=== PATIENT | female | born 2000 | race Caucasian/White ===

== ENCOUNTER 2020-01-07 07:44 | Outpatient (CLI) | payer BC, SELFPAY ==
--- NOTE | 2020-01-07 07:54 | US_ITS ---
WS: [id number] ULTRASOUND BREAST LEFT TECHNIQUE: Ultrasound left breast focused area of concern. CLINICAL INFORMATION: LT BREAST LUMP COMPARISON: None. FINDINGS: Ultrasound left breast 900 oclock position. In the 9:00 position there is a band of echogenic dense p arenchymal breast tissue. No suspicious cystic or solid lesions. No lesions to target for biopsy. US/US breast LT limited* 72041 IMPRESSION: BI-RADS 2 benign Recommend annual screening mammography age 40 Additional management of the palpable abnormality should be based on clinical g rounds.
== END 2020-01-07 07:45 | disposition home or self-care (01) ==
LOC: RADSHAW 07:47
PROVIDERS: Family Provider Nurse Practitioner Family; PCP Nurse Practitioner Family; Visit Provider Nurse Practitioner Family
DX: N63.20 Unspecified lump in the left breast, unspecified quadrant (principal)
CPT/HCPCS: 76642

== ENCOUNTER → 2020-02-04 16:39 | Outpatient (BNVA) | payer BC, SELFPAY | PROVIDERS: Family Provider Nurse Practitioner Family; PCP Nurse Practitioner Family; Visit Provider Nurse Practitioner Family | DX: Z30.42 Encounter for surveillance of injectable contraceptive (principal); H66.92 Otitis media, unspecified, left ear | CPT/HCPCS: 81025 ==

== ENCOUNTER → 2020-03-11 13:07 | Outpatient (BNVA) | payer BC, SELFPAY | PROVIDERS: Family Provider Nurse Practitioner Family; PCP Nurse Practitioner Family; Visit Provider Nurse Practitioner Family | DX: M25.552 Pain in left hip (principal) | CPT/HCPCS: 73502 ==

== ENCOUNTER 2020-03-22 10:42 | Day surgery (SDC) | payer BC, SELFPAY ==
[2020-03-19 08:30] VITALS: BMI 40.4
[2020-03-22 11:04] VITALS: BP 159/120; PULSE 71; RESP 18; TEMP 36.3; O2SAT 96
[2020-03-22 11:13] LABS: OR HCG Qualitative Urine Negative (Negative)
[2020-03-22] MEDS: sodium chloride 0.9% 1,000 ML 30 ML IV (11:39)
--- NOTE | 2020-03-22 12:00 | ANES.PREANE2 ---
Pre-Anesthetic Assessment Pre-Anesthetic Assessment: Height/Weight: Height 1.8 m Weight 131.542 kg Temp Pulse Resp BP Pulse Ox 97.4 F L 71 18 159/120 96 03/22/20 11:04 03/22/20 11:04 03/22/20 11:04 03/22/20 11:04 03/22/20 11:04 Preop Diagnosis: GERD associated with obesity Proposed Procedure: Operation Date: 03/22/20 12:00 Proposed Procedures p EGD 18437 K21.9(Not Applicable) - Kobi Machado MD Was Beta Darline taken within 24 hours: N/A Last intake: Intake Last Liquid Date 03/21/20 Last Liquid Time 22:30 Last Solid Date 03/21/20 Last Solid Time : Social: Social History: No alcohol and No tobacco Exam: Pre-Anes Outpt Exam: alert, oriented x 3, clear to auscultation bilaterally and regular rate & rhythm Airway: Submandibular: WNL Cervical ROM: WNL MP: 2 History/ROS: No significant history except as noted Pulmonary: Pulmonary: None reported CV/HEM: CV/HEM: None reported : : None reported Hepatic: Hepatic: None reported GI: GI: GERD Metabolic: Metabolic: Morbid obesity Musc/skel: Musc/skel: None reported Neuropsych: Neuropsych: None reported Anesthetic Plan: ASA status: 2 Anesthesia: Anesthesia Evaluation and MAC Risk of > 500 ml blood loss (7ml/kg in children): No Meds/Allergies Current Medications: Current Medications Generic Name Dose Route Start Last Admin Trade Name Freq PRN Reason Stop Dose Admin Sodium Chloride 1,000 mls @ 30 ml s/hr 03/22/20 11:00 03/22/20 11:39 Sodium Chloride 0.9% IV 30 mls/hr .Q24H ALEKSEY Administration PFSH Anesthesia PFSH: Medical History Anxiety Chronic back pain Family planning, Depo-Provera contraception monitoring/administration Left hip pain Morbid obesity Surgical History GERD (gastroesophageal reflux disease) History of bone graft From Hip History of foot surgery Left History of hip surgery error Family History Other Diabetes Denies family history of Anesthesia complication Bleeding disorder Social History Smoking and tobacco status: never smoked Alcohol intake: never Lives independently: Yes Household members: family Marital status: Single Current occupational status: employed History of recent travel: No Data Anesthesia Other Labs: Laboratory Results - last 48 hr 03/22/20 11:07 Urine HCG, Qual Negative Cardiac Studies: No Data to Display
--- NOTE | 2020-03-22 12:03 | W.PM.OPSUD ---
Surgery/Procedure H&P Update DATE OF PROCEDURE: March 22, 2020 DATE H&P PERFORMED: 11/13/19 H&P UPDATE INFORMATION: I have reviewed H&P completed within last 30 days, I have examined patient prior to procedure and No changes to prior documentation PREOP DIAGNOSIS: GERD associated with obesity PRIMARY INDICATION FOR PROCEDURE: The same PLANNED PROCEDURE: Operation Date: 03/22/20 12:00 Proposed Procedures p EGD 42845 K21.9(Not Applicable) - Kobi Machado MD
[2020-03-22 12:20] VITALS: BP 98/52; PULSE 75; RESP 16; TEMP 37.2; O2SAT 99
[2020-03-22 12:31] VITALS: BP 94/50; PULSE 66; RESP 18; O2SAT 100
[2020-03-23 12:10] LABS: H. Pylori / CLO Test Negative
== END 2020-03-22 12:40 | disposition home or self-care (01) ==
PROVIDERS: PCP Nurse Practitioner Family; Visit Provider Surgery
PROC: 0DJ08ZZ Inspection of Upper Intestinal Tract, Via Natural or Artificial Opening Endoscopic (ICD-10-PCS; CPT 43235; principal; 2020-03-22 12:00)
DX: K21.9 Gastro-esophageal reflux disease without esophagitis (principal); E66.01 Morbid (severe) obesity due to excess calories; K31.89 Other diseases of stomach and duodenum; K29.70 Gastritis, unspecified, without bleeding
CPT/HCPCS: 12345; 43239; 84703; 87077; J2704; J7030

== ENCOUNTER → 2020-06-22 10:29 | Outpatient (BNVA) | payer BC, SELFPAY | PROVIDERS: PCP Nurse Practitioner Family; Visit Provider Nurse Practitioner Family | DX: Z13.6 Encounter for screening for cardiovascular disorders (principal); E66.01 Morbid (severe) obesity due to excess calories; Z79.899 Other long term (current) drug therapy | CPT/HCPCS: 80053; 80061; 81003; 82306; 83036; 84443; 85007; 85027 ==

== ENCOUNTER → 2020-08-30 17:29 | Outpatient (BNVA) | payer BC, SELFPAY | PROVIDERS: PCP Nurse Practitioner Family | DX: R30.0 Dysuria (principal) | CPT/HCPCS: 81000; 87086 ==

== ENCOUNTER 2021-04-12 16:13 | Inpatient (IN) | payer BC, SELFPAY ==
[2021-04-11 09:52] VITALS: BMI 34.2
[2021-04-12] VITALS (16 sets, daily range): BP systolic 99–164; BP diastolic 54–85; PULSE 56–89; RESP 16–22; TEMP 35.9–36.8; O2SAT 98–100
[2021-04-12 11:29] LABS: OR HCG Qualitative Urine Negative (Negative)
[2021-04-12] MEDS: scopolamine 1.5 Patch 1 PATCH TRANSDERMA (11:42)
[2021-04-12] MEDS: sodium chloride 0.9% 1,000 ML 999 ML IV (11:42)
[2021-04-12] MEDS: heparin 5,000 unit/mL INJ 1 mL 5000 UNIT SUBCUT ×2 (11:43→23:03)
[2021-04-12] MEDS: acetaminophen 1,000 MG/100 ML PIGGYBACK 400 MG IV ×2 (11:43→20:18)
--- NOTE | 2021-04-12 11:56 | ANES.PREANE2 ---
Pre-Anesthetic Assessment Pre-Anesthetic Assessment: Height/Weight: Height 1.8 m Weight 111.584 kg Temp Pulse Resp BP Pulse Ox 97.8 F 72 18 99/74 99 04/12/21 11:30 04/12/21 11:30 04/12/21 11:30 04/12/21 11:30 04/12/21 11:30 Preop Diagnosis: GERD associated with obesity Proposed Procedure: Operation Date: 04/12/21 12:35 Proposed Procedures p Laparoscopic ventical Gastric Sleeve w/ EGD 27745 24140 e66.01(Not Applicable) - Kobi Machado MD s EGD(Not Applicable) - Kobi Machado MD Familial anesthetic complications: None Was Beta Darline taken within 24 hours: N/A Was Clonidine taken within 24 hours: N/A Last intake: Intake Last Liquid Date 04/11/21 Last Liquid Time 23:00 Last Solid Date 04/11/21 Last Solid Time 22:45 Social: Social History: No alcohol and No tobacco Exam: Pre-Anes Outpt Exam: alert, oriented x 3, clear to auscultation bilaterally and regular rate & rhythm Airway: Cervical ROM: WNL MP: 3 Dentition: Full GI: GI: GERD Metabolic: Metabolic: Morbid obesity Musc/skel: Musc/skel: Lower Back Pain Anesthetic Plan: ASA status: 2 Anesthesia: General Risk of > 500 ml blood loss (7ml/kg in children): No Meds/Allergies Current Medications: Current Medications Generic Name Dose Route Start Last Admin Trade Name Freq PRN Reason Stop Dose Admin Sodium Chloride 1,000 mls @ 999 m ls/hr 04/12/21 11:13 04/12/21 11:42 Sodium Chloride 0.9% IV 04/12/21 12:13 999 mls/hr .Q1H1M ONE Administration PFSH Anesthesia PFSH: Medical History Anxiety Anxiety and depression Chronic back pain Family planning, Depo-Provera contraception monitoring/administration History of PCOS Hypertension screen Left hip pain Medication management Medication management Morbid obesity Nausea Right knee pain Vitamin D deficiency Surgical History GERD (gastroesophageal reflux disease) History of bone graft From Hip History of esophagogastroduodenoscopy (EGD) (~02/2020) History of foot surgery Left History of hip surgery error Family History Other Diabetes Denies family history of Anesthesia complication Bleeding disorder Social History Smoking and tobacco status: never smoked Alcohol intake: never Lives independently: Yes Household members: family Marital status: Single Current occupational status: employed Current occupation: Student History of recent travel: No Female Reproductive History: Date of last menstrual period: 04/07/21 Data Anesthesia Other Labs: Laboratory Results - last 48 hr 04/12/21 11:21 Urine HCG, Qual Negative Cardiac Studies: No Data to Display
--- NOTE | 2021-04-12 12:37 | W.PM.OPSUD ---
Surgery/Procedure H&P Update DATE OF PROCEDURE: April 12, 2021 DATE H&P PERFORMED: 03/23/21 H&P UPDATE INFORMATION: I have reviewed H&P completed within last 30 days, I have examined patient prior to procedure and No changes to prior documentation PREOP DIAGNOSIS: Obesity PRIMARY INDICATION FOR PROCEDURE: The same PLANNED PROCEDURE: Operation Date: 04/12/21 12:35 Proposed Procedures p Laparoscopic ventical Gastric Sleeve w/ EGD [id number] 39827 e66.01(Not Applicable) - Kobi Machado MD s EGD(Not Applicable) - Kobi Machado MD
[2021-04-12] MEDS: pantoprazole 40 mg SDV IVP (13:05)
[2021-04-12] MEDS: sodium chloride 0.9% 1,000 ML 30 ML IV (13:13)
--- NOTE | 2021-04-12 15:55 | P.OP_ITS ---
Operative Report Date of procedure: April 12, 2021 Pre-op Diagnosis: Obesity Post-op diagnosis: same Procedure Done: Laparoscopic vertical sleeve gastrectomy and intraoperative EGD Specimens removed/disposition: Subtotal gastrectomy status post gastric sleeve with sutures marked proximal Surgeon: Kobi Machado Robotics Software Engineer: Surgical techs Stephanie Voss Circulating nurse Silke Jones Anesthesia: General ([facility]ITOA CARDIOPULMONARY TECHNOLOGIST CHIEF Annemarie) Estimated blood loss (mL): 10 IV fluids (mL): 1,700 Urine output (mL): 150 Condition: stable Disposition: floor Brief History: Obesity with associated medical comorbidities. Full H&P informed consent per chart. Procedure: Procedure: Patient was identified in holding area , appropriate pharmacologic DVT prophylaxis was given and preoperative IV fluid hydration, patient was then taken to the operating room where the patient was placed in supine position, intubated by anesthesia prophylactic antibiotics were given per protocol,Time-out was done verifying the patient's name/date of /planned procedure and destination after the procedure, all were in agreement.SCDs confirmed to be functioning, and beta cecil protocol was confirmed. A Lopez catheter was inserted by the circulating nurse revealing clear urine. A foot board was applied to secure the patient while the patient is placed in reversed Trendelenburg, all pressure points were padded, and the patient was appropriately secured to the table, anesthesia was asked to rotate the table back and forth to verify that the patient is appropriately secured, and that was the case. The abdomen was prepped and draped under the usual sterile technique. A 1 cm transverse incision was made with a 15 blade scalpel approximately 15 cm below the xiphoid process and 3 cm left of the midline.A 12 mm optical trocar port was placed under direct vision into the peritoneal cavity without intial evidence of injury to peritoneal structures upon entry. The peritoneal cavity was insufflated with carbon dioxide gas up to 15 mmHg pressure.A 45? angle laparoscopy was placed through the port into the peritoneal cavity there was no significant blood, fluid, or evidence of intra-abdominal injury under direct visualization,Longer trocars were then used;a 12 mm trocar port was placed in the right epigastric region and a fourth 5 mm trocar port was placed in the mid epigastric region more caudad than and medial to the previous port. A 5 mm trocar port was placed in the left lateral flank and additional 5 mm trocar was inserted midway between the left lateral flank trocar and the initial 12 mm trocar. I lifted the omentum up to make sure there were no injuries encountered from the initial trocar insertion, the underlying transverse colon and small bowel viscera were normal. As the liver is already shrunk in response to liquid protein diet I did not see an appropriate indication to apply a liver retractor. Patient was then placed in the reversed Trendelenburg Following this, the greater curvature of the stomach was freed from the omentum using the harmonic scalpel. This division included the short gastric vessels proximally. This dissection was carried from approximately 4 cm-6 cm proximal to the pylorus and extending all the way up to the angle of Hiss. During this process the posterior aspect of the stomach was mobilized from the underlying peritoneum and the posterior aspect of the stomach was well exposed. With the greater curvature of the stomach exposed from within 4-6 cm of the pylorus and extending to the angle of Hiss, which also included the posterior stomach, a 40 Mosotho standard template passed under direct vision down the esophagus, stomach, and into the first part of the duodenum by the anesthesia provider and under direct guidance and visualization by me,via the laparoscopy. Using the template 40 Mosotho aligned along the lesser curvature of the stomach and all the way to the first part of the Duodenum,the 40 Mosotho Bougie was used as a template the laparoscopic vertical gastric sleeve was performed starting from a point about 5 cm from the pylorus along the greater curvature.Using the [place] Laparoscopic MARK linear cutting stapler with [place] Endopath enforcement, a series of josh were used to transect the stomach in a vertical fashion along the left side of the template. Through the entire division of the stomach using the staplers,the template was always checked to be in good place and well aligned to the lesser curvature while dividing the stomach. This was carried all the way to the angle of Hiss.Green load was used initially followed by Gold and blue loads were used for the more proximal part of the stomach. The staple line along the remaining tubularized stomach was tested for leaks and bleeding under direct vision as the 40 Mosotho template was exchanged (and there was no evidence of blood on the tip of the template) by a standard diagnostic EGD via the mouth by my me after I scrubbed out, insufflation was achieved and the staple line submerged under saline ,meanwhile a clamp was applied distally onto the end of the tubularized stomach to allow insufflation test for leak. There was no evidence of leak .There was adequate hemostasis along the staple line.EGD was taken out at this point after deflation of the tubularized stomach. I then scrubbed back in The transected partial stomach, which included the greater curvature, was removed from the peritoneum through the first 12 mm trocar site, and was sent for permanent pathology Prior to closure of the fascia. A final look laparoscopy identified no injuries, there was mild oozing at the fat pad at the GE junction and 5 m clips were applied as well as the distal part of the conduit. I elected to put a [id number] silk suture grabbing portion of the omentum onto the GE junction for hemostasis. Multiple 5 mm clips were applied onto the staple line to secure hemostasis. An interrupted #1 PDS suture on a granny needle suture passer was used to close the right epigastric and the other 12 mm trocar left of the midline fascial defects under direct visualization.The other trocars were removed under direct vision and no evidence of bleeding was identified. The pneumoperitoneum was decompressed.All skin incisions were irrigated with saline, then closed with josh, followed by application of sterile dressings.The patient was extubated and taken to the recovery room with normal vital signs. All counts of instruments,sponges and needles were completed at the end of the procedure I was present for the whole entire procedure
[2021-04-12] MEDS: HYDROmorphone 1 mg/mL INJ 1 mL 0.5 MG IVP (16:25)
--- NOTE | 2021-04-12 16:36 | SUR.PHASEI ---
PT RESTING QUIETLY WITH GOOD RESP NOTED ABD LARGE SOFT WITH 5 BANDAIDS NOTED KIRKPATRICK TO DD YELLOW URINE NOTED TO TUBING AND BAG. BILAT SCDS ON.
--- NOTE | 2021-04-12 17:16 | ANE.PACU2 ---
Inpatient post-anesthesia follow up: Airway intact: Yes Vital signs: Temperature 96.7 F Pulse Rate 69 Respiratory Rate 16 Blood Pressure 135/79 Pulse Oximetry 100 Oxygen Delivery Me thod Nasal Cannula Oxygen Flow Rate 3 Fraction of Inspir ed Oxygen Hydration adequate: Yes Nausea and vomiting: No Pain level: 3 Mental status: Baseline
[2021-04-12] MEDS: lactated ringers 1,000 ML 150 ML IV ×2 (17:50→23:04)
[2021-04-12 18:08] LABS: Glucose Point of Care 109 mg/dL (70-110)
[2021-04-12 20:41] LABS: Glucose Point of Care 119 mg/dL (70-110)
[2021-04-12] MEDS: morphine 4 mg/mL SDV 1 mL 2 MG IVP (23:02)
[2021-04-13] VITALS (17 sets, daily range): BP systolic 114–128; BP diastolic 70–78; PULSE 55–99; RESP 16–20; TEMP 36.6–37.2; O2SAT 92–100
[2021-04-13] MEDS: HYDROmorphone 1 mg/mL INJ 1 mL IVP (01:32)
[2021-04-13 02:59] LABS: Hematocrit 38.7 % (37.0-47.0); Hemoglobin 12.7 g/dL (11.5-15.3)
[2021-04-13 03:40] LABS: Blood Urea Nitrogen 7 mg/dL (6-20); Calcium 8.3 mg/dL (8.5-10.5); Carbon Dioxide 18 mmol/L (22-29); Chloride 104 mmol/L (98-107); Glomerular Filtration Rate 157.3 mL/min (90-130); Glucose 112 mg/dL (65-115); Osmolality Calculated 279 mOsm/kg (285-295); Sodium 135 mmol/L (136-145)
[2021-04-13] MEDS: lactated ringers 1,000 ML 150 ML IV ×3 (05:39→19:43)
[2021-04-13] MEDS: ondansetron 2 mg/ML SDV 2 mL 4 MG IVP ×3 (05:40→20:59)
[2021-04-13] MEDS: morphine 4 mg/mL SDV 1 mL 2 MG IVP ×4 (05:40→16:37)
[2021-04-13] MEDS: heparin 5,000 unit/mL INJ 1 mL 5000 UNIT SUBCUT ×2 (05:40→14:26)
--- NOTE | 2021-04-13 05:48 | P.PN_ITS ---
Subjective Subjective: Interval history: Patient overall feels well yet little bit sore at the incision site. Adequate urine output, no acute events overnight Medications: Reviewed: Yes Vitals/I&O/Wt Last Vital Signs Temp 97.8 F 04/13/21 03:56 Pulse 55 L 04/13/21 03:56 Resp 16 04/13/21 03:56 BP 114/70 04/13/21 03:56 Pulse Ox 100 04/13/21 03:56 04/12/21 04/12/21 04/13/21 14:59 22:59 06:59 Intake Total 1100 / 1100 800 / 1900 885 / 2785 Output Total 310 / 310 900 / 1210 Balance 1100 / 1100 490 / 1590 -15 / 1575 Weight last 48 hrs Weight 246 lb Physical Exam Narrative: EXAM NARRATIVE: Patient is conscious alert oriented X3 BMI 34.3 Head and neck examination PERRLA no masses no cervical lymphadenopathy no jaundice Cardiac examination audible S1-S2 no murmurs no gallops no arrhythmias Chest is clear bilateral,abscence of Rhonchi or wheezes,no surgical emphysema Abdomen nontender except mildly at the incision site nondistended soft no organomegaly guarding or rigidity/no signs of peritonitis. Lopez catheter in place with clear Extremities no cyanosis no clubbing no edema Urinary Catheter Management^: Lopez: Cath Placed During This Visit: yes Reason for Continuing Indwelling Catheter: Perioperative Use in Selected Surgeries Urinary Catheter Date of Insertion: 04/12/21 Urinary Catheter Time of Insertion: 13:22 Data : 04/13/21 02:50 04/13/21 02:50 A&P Assessment and plan (1) Status post laparoscopic sleeve gastrectomy: Status post laparoscopic sleeve gastrectomy and intraoperative EGD. 04/12/2021 Continue n.p.o. status till upper GI study is obtained once it is done and cleared we will start the patient on clear liquid diet Follow nutrition consultation Pharmacologic DVT prophylaxis Incentive spirometer every hour Encourage ambulation DC Lopez catheter Assurance and education All questions have been answered and all concerns have been addressed to patient's satisfaction. Status: Acute Attestations Medical Necessity Statement*: Patient requiring inpatient hospitalization passing 2 midnights for perioperative bariatric surgery care, pending upper GI study Time Spent in Patient Care: (>than 50% of time spent in counselling and/or direct pt care on unit) . Coding Level of Care Code Acute Rail Project Engineer for Chg Fwd Diagnoses Status post laparoscopic sleeve gastrectomy Z98.84
[2021-04-13 06:19] LABS: Glucose Point of Care 109 mg/dL (70-110)
--- NOTE | 2021-04-13 08:00 | FL_ITS ---
WS: [id number] Upper GI with Gastrografin, 04/13/2021 Clinical Data: Status Post Gastric Sleeve Comparison: None.' Fluoroscopy time: 0.5 minutes Findings: The patient swallowed the Gastrografin flowed normally through the esophagus. The gastric sleeve was intact. There is no extravasation. No obstruction could be seen. FL/FL upper GI series [id number] Impression: Intact gastric sleeve with no extravasation or fistula.
[2021-04-13] MEDS: metoclopramide 5 mg/mL SDV 2 mL IVP (08:20)
--- NOTE | 2021-04-13 08:25 | PC.NURSE ---
series pt went down for abd series
[2021-04-13] MEDS: diatrizoate meglumine 120 mL Sol PO (08:44)
--- NOTE | 2021-04-13 10:13 | PC.CHAP ---
Pastoral Care Encounter/Spiritual Assessment Type of Contact [] Declined family sociologist visit [] Patient/Family/Request visit [] Outpatient visit [] Follow-up visit [] Physician referral [] Code/Alert [] Routine visit [] Staff referral [] Actively dying [x] Patient sleeping [] Family support [] [] Out of room [] Palliative care [] [] Receiving care in room [] Pre-surgical visit [] Trauma [] Long length of stay [] ICU visit [] Other: Relational/Emotional Strength [] Patient feels connected with others/family/visitors/staff [] Distress [] Loneliness/isolation [] Abandonment Spirituality of Patient [] Person of Rasheeda [] Attends Confucianist of their Rasheeda [] Believes in Prayer [] Reads Bible or Taoist materials [] There are Spiritual issues to be addressed Safe Expert Interventions [] Prayer [] Active listening [] Non-anxious presence [] Spiritual/emotional support [] Crisis/trauma care [] Spiritual counseling [] Bereavement support [] Provided bereavement packet [] Provided Bible/devotional materials [] Provided toy/stuffed animal, coloring book to patient or family member [] Provided Communion [] Anointing/[place] [] Salvation [] Completed spiritual assessment [] Other: Impact on Illness or Injury [] Angry [] Fearful [] Anxious [] Often cries [] Exhaustion [] Unable to work [] Unable to attend hinduism [] Unable to walk/stand [] Unable to read [] Unable to drive [] Unable to eat/drink [] Unable to sleep [] Unable to be with family [] Patient intubated [] Other: Summary Time spent with patient
[2021-04-13 11:06] LABS: Glucose Point of Care 97 mg/dL (70-110)
[2021-04-13] MEDS: acetaminophen 1,000 MG/100 ML PIGGYBACK 400 MG IV (12:34)
[2021-04-13] MEDS: HYDROcodone-acetaminophen 5-325 mg Tablet 1 TAB PO ×2 (14:25→20:55)
[2021-04-13 16:48] LABS: Glucose Point of Care 92 mg/dL (70-110)
[2021-04-13] MEDS: famotidine 20 mg/2 mL INJ IVP (18:15)
--- NOTE | 2021-04-13 19:07 | PC.NURSE ---
ambulation Pt walked 2 times today in [place] . 2 times around [address] nurse station each time.
[2021-04-13 20:59] LABS: Glucose Point of Care 96 mg/dL (70-110)
[2021-04-14] VITALS (10 sets, daily range): BP systolic 105–128; BP diastolic 57–75; PULSE 58–82; RESP 16–18; TEMP 36.3–37.1; O2SAT 96–100
[2021-04-14] MEDS: lactated ringers 1,000 ML 150 ML IV (01:22)
[2021-04-14] MEDS: heparin 5,000 unit/mL INJ 1 mL 5000 UNIT SUBCUT ×3 (01:22→17:36)
[2021-04-14] MEDS: morphine 4 mg/mL SDV 1 mL 2 MG IVP (01:22)
[2021-04-14 02:46] LABS: Hematocrit 36.8 % (37.0-47.0); Hemoglobin 12.2 g/dL (11.5-15.3)
[2021-04-14 02:50] LABS: Anion Gap 16.8 (5-19); Blood Urea Nitrogen 4 mg/dL (6-20); Calcium 8.8 mg/dL (8.5-10.5); Carbon Dioxide 21 mmol/L (22-29); Chloride 102 mmol/L (98-107); Glomerular Filtration Rate 157.3 mL/min (90-130); Glucose 93 mg/dL (65-115); Osmolality Calculated 279 mOsm/kg (285-295); Potassium 3.8 mmol/L (3.5-5.1); Sodium 136 mmol/L (136-145)
[2021-04-14] MEDS: HYDROcodone-acetaminophen 5-325 mg Tablet 1 TAB PO ×3 (05:49→19:45)
[2021-04-14] MEDS: ondansetron 2 mg/ML SDV 2 mL 4 MG IVP (05:54)
[2021-04-14] MEDS: famotidine 20 mg/2 mL INJ IVP ×2 (05:54→17:36)
[2021-04-14 06:32] LABS: Glucose Point of Care 92 mg/dL (70-110)
[2021-04-14] MEDS: lactated ringers 1,000 ML 50 ML IV (07:40)
--- NOTE | 2021-04-14 10:52 | PM.PN ---
Subjective Subjective: Interval history: Patient does have discomfort on swallowing particularly in the epigastric area. She reports to me that she did some retching with the upper GI study as before that she was not having discomfort in this area. Otherwise most of the soreness and pain around the incision sites. Continues to have stable vital signs requiring pain medications. Adequate urine output. Slight drift in H&H otherwise appropriate lab values Medications: Reviewed: Yes Vitals/I&O/Wt Last Vital Signs Temp 98.7 F 04/14/21 07:49 Pulse 58 L 04/14/21 07:49 Resp 18 04/14/21 07:49 BP 105/58 04/14/21 07:49 Pulse Ox 98 04/14/21 07:49 04/13/21 04/14/21 04/14/21 22:59 06:59 14:59 Intake Total 1500 / 2600 1147.5 / 3747.5 100 / 100 Output Total 725 / 1525 700 / 2225 Balance 775 / 1075 447.5 / 1522.5 100 / 100 Physical Exam Narrative: EXAM NARRATIVE: Patient is conscious alert oriented X3 BMI 34.3 Head and neck examination PERRLA no masses no cervical lymphadenopathy no jaundice Cardiac examination audible S1-S2 no murmurs no gallops no arrhythmias Chest is clear bilateral,abscence of Rhonchi or wheezes,no surgical emphysema Abdomen nontender except mildly at the epigastric epigastric area and incision sites,nondistended soft no organomegaly guarding or rigidity/no signs of peritonitis. Extremities no cyanosis no clubbing no edema Urinary Catheter Management^: Lopez: Cath Placed During This Visit: yes, but has since been removed by the nurse Reason for Continuing Indwelling Catheter: Not indwelling catheter Urinary Catheter Date of Insertion: 04/12/21 Urinary Catheter Time of Insertion: 13:22 Date Urinary Catheter Removed: 04/13/21 Time Urinary Catheter Discontinued: 06:01 Data : 04/15/21 01:41 04/15/21 01:41 A&P Assessment and plan (1) Status post laparoscopic sleeve gastrectomy: Status post laparoscopic sleeve gastrectomy and intraoperative EGD. 04/12/2021 clear liquid diet Follow nutrition consultation We will hold heparin due to slight drift in H&H Incentive spirometer every hour Encourage ambulation We will switch only to p.o. pain medications and DC IV narcotics, as oxycodone was added for breakthrough pain. We will monitor the patient through the day and if she continues to be appropriate we will plan to discharge home today otherwise we will keep her 1 more night in the hospital for better pain control. Assurance and education All questions have been answered and all concerns have been addressed to patient's satisfaction. Status: Acute Attestations Medical Necessity Statement*: Patient requiring inpatient hospitalization passing 2 midnights for perioperative bariatric surgery care, pending upper GI study Time Spent in Patient Care: (>than 50% of time spent in counselling and/or direct pt care on unit). Coding Level of Care Code Acute Utilities Ground Worker for Chg Fwd Diagnoses Status post laparoscopic sleeve gastrectomy Z98.84
[2021-04-14 10:53] LABS: Glucose Point of Care 87 mg/dL (70-110)
--- NOTE | 2021-04-14 10:59 | PC.NURSE ---
ambulated walked once around [place] [facility]
[2021-04-14] MEDS: metoclopramide 5 mg/mL SDV 2 mL IVP (11:40)
[2021-04-14] MEDS: HYDROmorphone 1 mg/mL INJ 1 mL IVP (11:41)
--- NOTE | 2021-04-14 13:45 | PC.NURSE ---
ambulation pt stated she walked 2-3 times around [place].
[2021-04-14 16:27] LABS: Glucose Point of Care 87 mg/dL (70-110)
[2021-04-14] MEDS: acetaminophen 1,000 MG/100 ML PIGGYBACK 400 MG IV (16:33)
[2021-04-14] MEDS: phenol oral Spray 177 mL 3 SPRAY MUCOUS MEM (18:37)
[2021-04-14] MEDS: alum-mag-hydroxide-sime 30 mL UDC PO (18:38)
[2021-04-14 20:35] LABS: Glucose Point of Care 85 mg/dL (70-110)
[2021-04-15] VITALS (12 sets, daily range): BP systolic 112–128; BP diastolic 71–85; PULSE 54–80; RESP 14–20; TEMP 36.5–36.9; O2SAT 95–99
[2021-04-15] MEDS: morphine 4 mg/mL SDV 1 mL 2 MG IVP (00:25)
[2021-04-15] MEDS: ondansetron 2 mg/ML SDV 2 mL 4 MG IVP ×2 (00:25→11:18)
[2021-04-15] MEDS: heparin 5,000 unit/mL INJ 1 mL 5000 UNIT SUBCUT (01:02)
[2021-04-15 01:49] LABS: Hematocrit 33.3 % (37.0-47.0); Hemoglobin 10.7 g/dL (11.5-15.3)
[2021-04-15 02:09] LABS: Anion Gap 17.5 (5-19); Blood Urea Nitrogen 4 mg/dL (6-20); Calcium 8.4 mg/dL (8.5-10.5); Carbon Dioxide 22 mmol/L (22-29); Chloride 103 mmol/L (98-107); Glomerular Filtration Rate 203.5 mL/min (90-130); Glucose 80 mg/dL (65-115); Osmolality Calculated 284 mOsm/kg (285-295); Potassium 3.5 mmol/L (3.5-5.1); Sodium 139 mmol/L (136-145)
[2021-04-15] MEDS: lactated ringers 1,000 ML 50 ML IV (03:35)
[2021-04-15] MEDS: HYDROcodone-acetaminophen 5-325 mg Tablet 1 TAB PO (03:42)
[2021-04-15] MEDS: famotidine 20 mg/2 mL INJ IVP ×2 (05:49→18:42)
[2021-04-15 06:29] LABS: Glucose Point of Care 83 mg/dL (70-110)
--- NOTE | 2021-04-15 06:31 | PC.NURSE ---
spoke to Dr Machado regarding pain control and labs, received order to hold sq heparin
[2021-04-15] MEDS: oxyCODONE 5 mg IR Tab/Cap PO ×2 (10:16→17:36)
[2021-04-15] MEDS: sucralfate 1 gm/10 mL Oral Liq UDC PO ×3 (10:16→20:58)
[2021-04-15 11:07] LABS: Glucose Point of Care 81 mg/dL (70-110)
--- NOTE | 2021-04-15 11:21 | PC.CHAP ---
Pastoral Care Encounter/Spiritual Assessment Type of Contact [] Declined senior c developer visit [] Patient/Family/Request visit [] Outpatient visit [] Follow-up visit [] Physician referral [] Code/Alert [] Routine visit [] Staff referral [] Actively dying [] Patient sleeping [] Family support [] [] Out of room [] Palliative care [] [] Receiving care in room [] Pre-surgical visit [] Trauma [] Long length of stay [] ICU visit [] Other: Relational/Emotional Strength [] Patient feels connected with others/family/visitors/staff [] Distress [] Loneliness/isolation [] Abandonment Spirituality of Patient [] Person of Rasheeda [] Attends Cheondoism of their Rasheeda [] Believes in Prayer [] Reads Bible or Latter Day materials [] There are Spiritual issues to be addressed Shuttle Repairer Interventions [] Prayer [] Active listening [] Non-anxious presence [] Spiritual/emotional support [] Crisis/trauma care [] Spiritual counseling [] Bereavement support [] Provided bereavement packet [] Provided Bible/devotional materials [] Provided toy/stuffed animal, coloring book to patient or family member [] Provided Communion [] Anointing/[place] [] Salvation [] Completed spiritual assessment [] Other: Impact on Illness or Injury [] Angry [] Fearful [] Anxious [] Often cries [] Exhaustion [] Unable to work [] Unable to attend yazdanism [] Unable to walk/stand [] Unable to read [] Unable to drive [] Unable to eat/drink [] Unable to sleep [] Unable to be with family [] Patient intubated [] Other: Summary Time spent with patient
--- NOTE | 2021-04-15 11:21 | PC.CHAP ---
Pastoral Care Encounter/Spiritual Assessment Type of Contact [] Declined cloth bleaching range operator chief visit [] Patient/Family/Request visit [] Outpatient visit [xx] Follow-up visit [] Physician referral [] Code/Alert [xx] Routine visit [] Staff referral [] Actively dying [] Patient sleeping [] Family support [] [] Out of room [] Palliative care [] [] Receiving care in room [] Pre-surgical visit [] Trauma [xx] Long length of stay [] ICU visit [] Other: Relational/Emotional Strength [xx] Patient feels connected with others/family/visitors/staff [] Distress [] Loneliness/isolation [] Abandonment Spirituality of Patient [xx] Person of Rasheeda [] Attends Sikh of their Rasheeda [xx] Believes in Prayer [] Reads Bible or Adventist materials [] There are Spiritual issues to be addressed Flatwork Presser Interventions [xx] Prayer [xx] Active listening [] Non-anxious presence [] Spiritual/emotional support [] Crisis/trauma care [] Spiritual counseling [] Bereavement support [] Provided bereavement packet [] Provided Bible/devotional materials [] Provided toy/stuffed animal, coloring book to patient or family member [] Provided Communion [] Anointing/Cambria [] Salvation [xx] Completed spiritual assessment [] Other: Impact on Illness or Injury [] Angry [] Fearful [] Anxious [] Often cries [] Exhaustion [] Unable to work [] Unable to attend shinto [] Unable to walk/stand [] Unable to read [] Unable to drive [] Unable to eat/drink [] Unable to sleep [] Unable to be with family [] Patient intubated [] Other: Summary Mother of patient present. Pleasant conversation with both. Time spent with patient 6 minutes
--- NOTE | 2021-04-15 11:25 | PC.CHAP ---
Pastoral Care Encounter/Spiritual Assessment Type of Contact [] Declined netsuite consultant visit [] Patient/Family/Request visit [] Outpatient visit [xx] Follow-up visit [] Physician referral [] Code/Alert [xx] Routine visit [] Staff referral [] Actively dying [] Patient sleeping [] Family support [] [] Out of room [] Palliative care [] [] Receiving care in room [] Pre-surgical visit [] Trauma [xx] Long length of stay [] ICU visit [] Other: Relational/Emotional Strength [xx] Patient feels connected with others/family/visitors/staff [] Distress [] Loneliness/isolation [] Abandonment Spirituality of Patient [] Person of Rasheeda [] Attends Yarsani of their Rasheeda [xx] Believes in Prayer [] Reads Bible or Anabaptist materials [] There are Spiritual issues to be addressed Supervisor [employer] Interventions [xx] Prayer [xx] Active listening [xx] Non-anxious presence [] Spiritual/emotional support [] Crisis/trauma care [] Spiritual counseling [] Bereavement support [] Provided bereavement packet [] Provided Bible/devotional materials [] Provided toy/stuffed animal, coloring book to patient or family member [] Provided Communion [] Anointing/Wishon [] Salvation [xx] Completed spiritual assessment [] Other: Impact on Illness or Injury [] Angry [] Fearful [] Anxious [] Often cries [] Exhaustion [] Unable to work [] Unable to attend yarsani [] Unable to walk/stand [] Unable to read [] Unable to drive [] Unable to eat/drink [] Unable to sleep [] Unable to be with family [] Patient intubated [] Other: Summary Patient expects to be discharged by end of day. She will spend several days with her sister before returning home. Time spent with patient 5 minutes
[2021-04-15 17:08] LABS: Glucose Point of Care 103 mg/dL (70-110)
[2021-04-15] MEDS: psyllium powder Pkt 1 PACKET PO (17:34)
[2021-04-15] MEDS: scopolamine 1.5 Patch 1 PATCH TRANSDERMA (17:35)
[2021-04-15] MEDS: cyclobenzaprine 10 mg Tablet PO (17:36)
[2021-04-15] MEDS: D5-NS 0.45% + KCL 20 mEq 20 MEQ/1,000 ML BAG 75 MEQ IV (18:04)
[2021-04-15 21:32] LABS: Glucose Point of Care 84 mg/dL (70-110)
[2021-04-16 02:08] LABS: Hematocrit 31.4 % (37.0-47.0); Hemoglobin 10.3 g/dL (11.5-15.3)
[2021-04-16 02:19] LABS: Anion Gap 14.6 (5-19); Blood Urea Nitrogen 4 mg/dL (6-20); Calcium 8.8 mg/dL (8.5-10.5); Carbon Dioxide 24 mmol/L (22-29); Chloride 104 mmol/L (98-107); Glomerular Filtration Rate 157.3 mL/min (90-130); Glucose 87 mg/dL (65-115); Osmolality Calculated 284 mOsm/kg (285-295); Potassium 3.6 mmol/L (3.5-5.1); Sodium 139 mmol/L (136-145)
[2021-04-16 03:36] VITALS: RESP 16
[2021-04-16] MEDS: oxyCODONE 5 mg IR Tab/Cap PO ×2 (03:36→11:00)
[2021-04-16 03:43] VITALS: BP 112/74; PULSE 58; RESP 18; TEMP 36.6; O2SAT 94
[2021-04-16 06:00] VITALS: PULSE 56
[2021-04-16] MEDS: famotidine 20 mg/2 mL INJ IVP (06:17)
[2021-04-16] MEDS: sucralfate 1 gm/10 mL Oral Liq UDC PO (06:17)
--- NOTE | 2021-04-16 06:52 | P.PN_ITS ---
Subjective Subjective: Interval history: Patient feels a whole lot better today. Stable vital signs and adequate urine output. Able to swallow with ease and pay more attention to the amount and portions on every time she drinks. Pain is under better control Otherwise no acute events overnight Medications: Reviewed: Yes Vitals/I&O/Wt Last Vital Signs Temp 97.9 F 04/16/21 03:43 Pulse 56 L 04/16/21 06:00 Resp 18 04/16/21 03:43 BP 112/74 04/16/21 03:43 Pulse Ox 94 04/16/21 03:43 04/15/21 04/15/21 04/16/21 14:59 22:59 06:59 Intake Total 360 / 360 1060 / 1420 120 / 1540 Output Total 900 / 900 Balance 360 / 360 160 / 520 120 / 640 Physical Exam Narrative: EXAM NARRATIVE: Patient is conscious alert oriented X3 BMI 34.3 Head and neck examination PERRLA no masses no cervical lymphadenopathy no jaundice Cardiac examination audible S1-S2 no murmurs no gallops no arrhythmias Chest is clear bilateral,abscence of Rhonchi or wheezes,no surgical emphysema Abdomen nontender except mildly at the incision sites, skin josh in place,nondistended soft no organomegaly guarding or rigidity/no signs of peritonitis. Extremities no cyanosis no clubbing no edema Urinary Catheter Management^: Lopez: Cath Placed During This Visit: yes, but has since been removed by the nurse Reason for Continuing Indwelling Catheter: Not indwelling catheter Urinary Catheter Date of Insertion: 04/12/21 Urinary Catheter Time of Insertion: 13:22 Date Urinary Catheter Removed: 04/13/21 Time Urinary Catheter Discontinued: 06:01 Data : 04/16/21 01:49 04/16/21 01:49 A&P Assessment and plan (1) Status post laparoscopic sleeve gastrectomy: Status post laparoscopic sleeve gastrectomy and intraoperative EGD. 04/12/2021 Continue following on dietary recommendations status post sleeve gastrectomy, refer TO patient's handout and education material given to the patient at the seminar preoperatively. Incentive spirometer every hour Encourage ambulation With plan to discharge patient home today Assurance and education All questions have been answered and all concerns have been addressed to patient's satisfaction. Status: Resolved Attestations Medical Necessity Statement*: Patient required inpatient hospitalization passing 2 midnights for perioperative bariatric surgery care, and postoperative pain control requiring continuous cardiac monitoring and ability to maintain appropriate and adequate p.o. intake. Time Spent in Patient Care: (>than 50% of time spent in counselling and/or direct pt care on unit) . Other Attestations: We will plan to discharge patient home today as she met the appropriate and safe criteria for discharge. Coding Level of Care Code Acute Supervisor Coffee for Chg Fwd Diagnoses Status post laparoscopic sleeve gastrectomy Z98.84
[2021-04-16 07:01] LABS: Glucose Point of Care 119 mg/dL (70-110)
--- NOTE | 2021-04-16 07:01 | PM.DCS ---
Discharge Providers Date of Admission: 04/12/21 Date of Discharge: April 16, 2021 Attending Provider at Admission: Kobi Machado MD Attending Provider at Discharge: Kobi Machado MD Primary Care Provider: NATHAN Ibarra Diagnoses at Discharge Discharge Diagnosis (1) Status post laparoscopic sleeve gastrectomy: Status: Resolved Reason for Visit Reason for Visit: lap ventical gastric sleeve and EGD [id number] and [id number] Hospital Course Hospital Course Patient undergone uneventful laparoscopic vertical sleeve gastrectomy and maintained to be in n.p.o. status for the upper GI study postoperative day 1 which was done and showed no extravasation or strictures or complications. Patient was started on phase I per nutrition guidelines and took the patient some time to tolerate and maintain appropriate p.o. intake as her pain control required different modalities to get it under better control, which required the patient to extend her stay in the hospital passing 2 midnights for that purpose as well as continuous cardiac monitoring and maintaining appropriate and adequate p.o. intake without the need for IV fluids. Through the whole entire state patient continued to have stable vital signs and adequate urine output, there has been continuous monitoring of patient's hematocrit and hemoglobin in addition to other lab values which there was a slight drift in H&H likely due to the heparin subcu, which was held and H&H continued to be stable, yet the patient maintained to be on SCDs for mechanical DVT prophylaxis. Today the patient demonstrated better understanding of the mechanism of p.o. intake and the smaller portions that required every time and consequently she felt better and feel more comfortable with the whole process. We will plan to discharge patient home today on antinausea medications, PPI therapy as well as muscle relaxants that was started yesterday and it seemed to help with the muscle spasms that the patient encounter every now and then. Patient demonstrated and verbalized understanding of the postoperative nutrition guidelines and p.o. intake with special emphasis on amount of proteins that she required to have. She will follow-up at the pediatric surgery office this coming Sunday at 1 PM to DC skin josh. Physical Exam Narrative: EXAM NARRATIVE: Patient is conscious alert oriented X3 BMI 34.3 Head and neck examination PERRLA no masses no cervical lymphadenopathy no jaundice Cardiac examination audible S1-S2 no murmurs no gallops no arrhythmias Chest is clear bilateral,abscence of Rhonchi or wheezes,no surgical emphysema Abdomen nontender except mildly at the incision sites, skin josh in place,nondistended soft no organomegaly guarding or rigidity/no signs of peritonitis. Extremities no cyanosis no clubbing no edema Urinary Catheter Management^: Lopez: Cath Placed During This Visit: yes, but has since been removed by the nurse Reason for Continuing Indwelling Catheter: Not indwelling catheter Urinary Catheter Date of Insertion: 04/12/21 Urinary Catheter Time of Insertion: 13:22 Date Urinary Catheter Removed: 04/13/21 Time Urinary Catheter Discontinued: 06:01 Discharge Data Data Completed and Pending: Completed Studies During Hospitalization Category Date Time [place] [id number] Routine Exams 04/13/21 08:00 Completed Pending at discharge Category Date Time Status ES surgery / GI i mages Routine Exams 04/12/21 13:29 Taken Pathology: Surgic al [PTH] Routine Pth 04/12/21 15:40 Received Labs from last 24 hours 04/16/21 04/16/21 04/16/21 06:48 01:49 01:49 Hgb 10.3 L Hct 31.4 L Sodium 139 Potassium 3.6 Chloride 104 Carbon Dioxide 24 Anion Gap 14.6 BUN 4 L Creatinine 0.5 GFR Calculation 157.3 H Glucose 87 POC Glucose Pending Calculated Osmolal ity 284 L Calcium 8.8 04/15/21 04/15/21 04/15/21 21:00 17:04 11:03 Hgb Hct Sodium Potassium Chloride Carbon Dioxide Anion Gap BUN Creatinine GFR Calculation Glucose POC Glucose 84 103 81 Calculated Osmolal ity Calcium Addt'l Data from Hospital Stay: Upper GI with Gastrografin, 04/13/2021 Clinical Data: Status Post Gastric Sleeve Comparison: None.' Fluoroscopy time: 0.5 minutes Findings: The patient swallowed the Gastrografin flowed normally through the esophagus. The gastric sleeve was intact. There is no extravasation. No obstruction could be seen. FL/FL upper GI series [id number] Impression: Intact gastric sleeve with no extravasation or fistula. Vitals: Last Vital Signs Temp 97.9 F 04/16/21 03:43 Pulse 56 L 04/16/21 06:00 Resp 18 04/16/21 03:43 BP 112/74 04/16/21 03:43 Pulse Ox 94 04/16/21 03:43 Discharge Plan Discharge Patient Disposition: Home Condition: Stable Prescriptions: New Transderm-Scop 1 mg over 3 days patch 3 day 1 patch transdermal Q3D PRN (Reason: nausea and vomiting) Qty: 4 RF: 2 Zofran 4 mg tablet 4 mg PO Q6H PRN (Reason: nausea and vomiting) 20 Days Qty: 80 RF: 1 cyclobenzaprine 10 mg tablet 10 mg PO Q8H PRN (Reason: muscle spasm) 7 Days Qty: 21 RF: 1 oxycodone 5 mg tablet 5 mg PO Q6H PRN (Reason: pain) 7 Days Qty: 28 RF: 0 Discontinued phentermine 37.5 mg tablet 37.5 mg PO DAILY 30 Days Qty: 30 RF: 0 Discharge Orders: Discharge Order (Routine); Ordered 04/16/21 Ordered By: Kobi Machado Referrals: Kobi Machado MD [Physician] - (Return to bariatric surgery office this coming Sunday at 1 PM) Discharge Diet: As Directed Discharge Activity: Limit activity as instructed Patient Instructions: Opioid Safety Activity Restrictions/Additional Instructions: 1. Patient can shower after 48 hours from surgery 2. Keep incisions open to air 3. Up and walking as tolerated 4. Do not lift more than 5 pounds first 2 weeks after surgery and not more than 25 pounds 6 to 8 weeks after surgery. 5. Do not operate heavy machinery or drive while using pain medications. 6.Contact the office or return to the ER for worsening nausea vomiting fevers or chills, or noticing any redness around incision sites or discharge. 7. Use Benefiber or Metamucil to avoid constipation 8. Avoid straws 9. Avoid dehydration Discharge Attestations Time Spent in Discharge Care*: greater than 30 min Specific Discharge Activities: educating patient Status at Discharge: Cognitive status at discharge: cognitively intact, Functional status at discharge: independent ambulation Overall status at discharge: patient is progressing back to baseline Quality Metrics Clinical Quality Measures During this hospital stay, did patient experience: None Coding Level of Care Code Acute Guerlineg FW ILEANA note Diagnoses Status post laparoscopic sleeve gastrectomy Z98.84
[2021-04-16 08:00] VITALS: BP 98/59; PULSE 55; RESP 14; TEMP 36.8; O2SAT 94
[2021-04-16] MEDS: psyllium powder Pkt 1 PACKET PO (09:09)
[2021-04-16 11:00] VITALS: RESP 18
[2021-04-16 11:03] VITALS: RESP 18
[2021-04-16 11:03] LABS: Glucose Point of Care 90 mg/dL (70-110)
== END 2021-04-16 11:00 | disposition home or self-care (01) | DRG 621 ==
LOC: MEDSURG 16:13
PROVIDERS: Anesthesiology; Admitting Provider Surgery; PCP Nurse Practitioner Family; Visit Provider Surgery
PROC: 0DB64Z3 Excision of Stomach, Percutaneous Endoscopic Approach, Vertical (ICD-10-PCS; CPT 43775; principal; 2021-04-12 12:35)
PROC: 0DJ08ZZ Inspection of Upper Intestinal Tract, Via Natural or Artificial Opening Endoscopic (ICD-10-PCS; CPT 43235; 2021-04-12 12:35)
DX: E66.01 Morbid (severe) obesity due to excess calories (principal); Z68.34 Body mass index [BMI] 34.0-34.9, adult; F41.8 Other specified anxiety disorders; G89.29 Other chronic pain; M54.9 Dorsalgia, unspecified; Z79.3 Long term (current) use of hormonal contraceptives; M25.552 Pain in left hip; M25.561 Pain in right knee; E55.9 Vitamin D deficiency, unspecified
CPT/HCPCS: 36415; 36416; 43235; 74240; 80048; 81025; 82962; 84703; 85014; 85018; 88309; 96365; 96372; 96374; C9113; C9290; G0378; J0330; J0690; J1100; J1170; J1200; J1644; J2250; J2270; J2405; J2704; J2765; J3010; J3490; J7030; Q9963

== ENCOUNTER 2021-04-18 22:26 | Emergency (ER) | payer BC, SELFPAY ==
[2021-04-18 22:48] VITALS: BP 104/67; PULSE 111; RESP 18; TEMP 37.1; O2SAT 96; BMI 34.2
--- NOTE | 2021-04-19 00:09 | ED_ITS ---
Documented by User: LEVY Fung 04/19/21 03:20 HPI - General Adult General: Chief complaint: General Medical Stated complaint: ab pain, post surgery Time Seen by Provider: 04/19/21 00:04 History of Present Illness: HPI narrative: Patient is a 20-year-old female comes to the ED with some abdominal pain post surgery. Patient had a laparoscopic gastric sleeve surgery performed by Dr. Machado on April 11, 2021. She was discharged from hospital on April 16. She is having some pain all across her lower abdomen and up to her epigastric region. She also reports that the pain radiates to the back. She says that her pain is well controlled when she takes her pain meds, but as soon as they wear off the pain comes back. She feels like her pain has not improved since the day after surgery. She states she has not had a bowel movement since surgery as well. Associated symptoms: Deny chest pain, dyspnea, headache(s), nausea, rash, palpitations or vomiting Review of Systems Const: Denies: fever(s), chills or fatigue Eyes: Denies: change in vision or eye discomfort ENMT: Denies: throat pain, odynophagia, nasal discharge or nasal congestion Card: Denies: chest pain, palpitations, edema, swelling of feet/ankles, dyspnea on exertion or orthopnea Resp: Denies: dyspnea, productive cough or non-productive cough GI: Reports: abdominal pain; Denies: nausea, vomiting, diarrhea, constipation or hematochezia : Denies: flank pain, dysuria or hematuria Musc: Denies: neck pain, back pain or extremity swelling Skin/Breast: Denies: rash or new lesions Neuro: Denies: headache(s), numbness in extremities or weakness in extremities PFS ED PFSH: Medical History Anxiety Anxiety and depression Chronic back pain Family planning, Depo-Provera contraception monitoring/administration History of PCOS Hypertension screen Left hip pain Medication management Medication management Morbid obesity Nausea Right knee pain Vitamin D deficiency Surgical History GERD (gastroesophageal reflux disease) History of bone graft From Hip History of esophagogastroduodenoscopy (EGD) (~02/2020) History of foot surgery Left History of hip surgery error Status post laparoscopic sleeve gastrectomy Family History Other Diabetes Denies family history of Anesthesia complication Bleeding disorder Social History Smoking and tobacco status: never smoked Alcohol intake: never Lives independently: Yes Household members: family Marital status: Single Current occupational status: employed Current occupation: Student History of recent travel: No Female Reproductive History: Date of last menstrual period: 04/04/21 Physical Exam Const: COMMON NORMALS: no acute distress, patient oriented x3 and alert GENERAL APPEARANCE: cooperative and comfortable HENMT: COMMON NORMALS: normocephalic HEAD & SCALP: normocephalic MOUTH: Normal oral and palatal mucosa present THROAT: posterior oropharynx normal and uvula midline Neck/C-Spine: COMMON NORMALS: supple GENERAL: Yes normal visual inspection Resp: COMMON NORMALS: normal respiratory effort, No retractions, No use of accessory muscles and clear to auscultation bilaterally AUSCULTATION: clear to auscultation bilaterally Cardio: COMMON NORMALS: regular rate, regular rhythm, S1 normal heart sound present, S2 normal heart sound present, No gallops present (Cardio), No clicks present (Cardio), No murmurs present (Cardio) and Peripheral pulses 2+ throughout RATE: regular rate RHYTHM: regular rhythm HEART SOUNDS: S1 normal heart sound present and S2 normal heart sound present PERIPHERAL PULSES: Peripheral pulses 2+ throughout GI: COMMON NORMALS: Normal to inspection, nondistended, normoactive bowel sounds present, Soft to palpation and no masses INSPECTION: Yes incision (Incision sites healing well, no signs of cellulitis or purulent drainage) Inspection of incision: healing well and Yes central obesity PALPATION: Yes Soft to palpation and Yes Tenderness to palpation present (GI) Details: LLQ, RLQ and other (Epigastric region) : COMMON NORMALS: Yes no CVA tenderness BLADDER/KIDNEY EXAM: Yes no CVA tenderness Back/Pelvis: COMMON NORMALS: no CVA tenderness Extremity: COMMON NORMALS: normal to inspection Neuro: COMMON NORMALS: patient oriented x3 and moves all extremities SENSORIUM/ORIENTATION: Yes alert Skin: GENERAL SKIN EXAM: dry skin Course ED course: Patient care was transferred over to Dr. Bates at 3:[address] Bates about patient case and that I am waiting on CT image findings for discharge. Vital Signs: Vital signs: Vital Signs Temperature 98.7 F 04/18/21 22:48 Pulse Rate 67 04/19/21 03:20 Respiratory Rate 18 04/19/21 03:20 Blood Pressure 111/64 04/19/21 03:20 Pulse Oximetry 100 04/19/21 03:20 [facility] - General Adult Lab Data: Attestation: I reviewed the patient's lab results. Labs: Lab Results 04/19/21 04/19/21 04/19/21 Range/Units 00:42 00:42 00:42 WBC 6.0 (4.5-13.0) 10^3/ uL RBC 4.71 (4.1-5.3) 10^6/u L Hgb 13.7 (11.5-15.3) g/dL Hct 46.0 (37.0-47.0) % MCV 97.7 (81-99) fL MCH 29.1 (28.0-34.0) pg MCHC 29.8 L (30.0-36.0) g/dL RDW 12.4 (12.1-15.1) % Plt Count 229 (130-400) 10^3/c mm MPV 9.9 (7.4-10.4) fL Neut % (Auto) 59.0 % Lymph % (Auto) 27.3 % Catron % (Auto) 11.4 % Eos % (Auto) 1.7 % Baso % (Auto) 0.3 % Neut # (Auto) 3.56 (1.8-8.0) 10^3/u L Lymph # (Auto) 1.7 (1.5-6.5) 10^3/u L Catron # (Auto) 0.7 (0.2-0.9) 10^3/u L Eos # (Auto) 0.1 (0.0-0.8) 10^3/u L Baso # (Auto) 0.0 (0.0-0.1) 10^3/u L Nucleated RBC % (a uto) 0 % Nucleated RBCs # 0.0 /100WBC Sodium 136 (136-145) mmol/L Potassium 4.2 (3.5-5.1) mmol/L Chloride 101 (98-107) mmol/L Carbon Dioxide 18 L (22-29) mmol/L Anion Gap 21.2 H (5-19) BUN 8 (6-20) mg/dL Creatinine 0.5 (0.5-0.9) mg/dL GFR Calculation 157.3 H (90-130) mL/min Glucose 71 (65-115) mg/dL Calculated Osmolal ity 279 L (285-295) mOsm/k g Calcium 8.9 (8.5-10.5) mg/dL Total Bilirubin 0.9 (0.15-1.2) mg/dL AST 38 H (0-32) U/L ALT 45 H (0-33) U/L Alkaline Phosphata se 91 (35-105) IU/L Total Protein 6.8 (6.6-8.7) g/dL Albumin 3.1 L (3.5-5.2) g/dL Globulin 3.7 (1.3-4.6) g/dL Lipase 70 H (13-60) U/L HCG, Qual Negative (Negative) Discharge Plan Discharge Patient Disposition: Home Clinical Impression: Abdominal pain Qualifiers: Abdominal location: generalized Qualified Code(s): R10.84 - Generalized abdominal pain Condition: Stable Prescriptions: No Action Transderm-Scop 1 mg over 3 days patch 3 day 1 patch transdermal Q3D PRN (Reason: nausea and vomiting) Qty: 4 RF: 2 Zofran 4 mg tablet 4 mg PO Q6H PRN (Reason: nausea and vomiting) 20 Days Qty: 80 RF: 1 cyclobenzaprine 10 mg tablet 10 mg PO Q8H PRN (Reason: muscle spasm) 7 Days Qty: 21 RF: 1 oxycodone 5 mg tablet 5 mg PO Q6H PRN (Reason: pain) 7 Days Qty: 28 RF: 0 Discharge Orders: Discharge ED (Routine); Ordered 04/19/21 Ordered By: Vera Bates Referrals: Kobi Machado MD [Physician] - 1-3 days LUZ MARIA Oden FNP [Primary Care Provider] - Discharge Diet: Advance as tolerated Discharge Activity: Resume usual activity Patient Instructions: Abdominal Pain (ED), Opioid Safety Coding Level of Care Code ED Sterile Instrument Technician for Chg Fwd Exam Comprehensive Documented by User: Vera Bates MD 04/19/21 03:19 HPI - General Adult General: Chief complaint: General Medical Stated complaint: ab pain, post surgery Time Seen by Provider: 04/19/21 00:04 PFSH ED PFSH: Medical History Anxiety Anxiety and depression Chronic back pain Family planning, Depo-Provera contraception monitoring/administration History of PCOS Hypertension screen Left hip pain Medication management Medication management Morbid obesity Nausea Right knee pain Vitamin D deficiency Surgical History GERD (gastroesophageal reflux disease) History of bone graft From Hip History of esophagogastroduodenoscopy (EGD) (~02/2020) History of foot surgery Left History of hip surgery error Status post laparoscopic sleeve gastrectomy Family History Other Diabetes Denies family history of Anesthesia complication Bleeding disorder Social History Smoking and tobacco status: never smoked Alcohol intake: never Lives independently: Yes Household members: family Marital status: Single Current occupational status: employed Current occupation: Student History of recent travel: No Course Vital Signs: Vital signs: Vital Signs Temperature 98.7 F 04/18/21 22:48 Pulse Rate 67 04/19/21 03:20 Respiratory Rate 18 04/19/21 03:20 Blood Pressure 111/64 04/19/21 03:20 Pulse Oximetry 100 04/19/21 03:20 MDM - General Adult MDM Narrative: Medical decision making narrative: Patient presents here with abdominal pain likely from her recent surgery. Her exam here is benign her pain is much improved. Blood work is normal as well. She is stable for discharge an d is to follow-up with PCP and return if worsening. Lab Data: Labs: Lab Results 04/19/21 04/19/21 04/19/21 Range/Units 00:42 00:42 00:42 WBC 6.0 (4.5-13.0) 10^3/ uL RBC 4.71 (4.1-5.3) 10^6/u L Hgb 13.7 (11.5-15.3) g/dL Hct 46.0 (37.0-47.0) % MCV 97.7 (81-99) fL MCH 29.1 (28.0-34.0) pg MCHC 29.8 L (30.0-36.0) g/dL RDW 12.4 (12.1-15.1) % Plt Count 229 (130-400) 10^3/c mm MPV 9.9 (7.4-10.4) fL Neut % (Auto) 59.0 % Lymph % (Auto) 27.3 % Catron % (Auto) 11.4 % Eos % (Auto) 1.7 % Baso % (Auto) 0.3 % Neut # (Auto) 3.56 (1.8-8.0) 10^3/u L Lymph # (Auto) 1.7 (1.5-6.5) 10^3/u L Catron # (Auto) 0.7 (0.2-0.9) 10^3/u L Eos # (Auto) 0.1 (0.0-0.8) 10^3/u L Baso # (Auto) 0.0 (0.0-0.1) 10^3/u L Nucleated RBC % (a uto) 0 % Nucleated RBCs # 0.0 /100WBC Sodium 136 (136-145) mmol/L Potassium 4.2 (3.5-5.1) mmol/L Chloride 101 (98-107) mmol/L Carbon Dioxide 18 L (22-29) mmol/L Anion Gap 21.2 H (5-19) BUN 8 (6-20) mg/dL Creatinine 0.5 (0.5-0.9) mg/dL GFR Calculation 157.3 H (90-130) mL/min Glucose 71 (65-115) mg/dL Calculated Osmolal ity 279 L (285-295) mOsm/k g Calcium 8.9 (8.5-10.5) mg/dL Total Bilirubin 0.9 (0.15-1.2) mg/dL AST 38 H (0-32) U/L ALT 45 H (0-33) U/L Alkaline Phosphata se 91 (35-105) IU/L Total Protein 6.8 (6.6-8.7) g/dL Albumin 3.1 L (3.5-5.2) g/dL Globulin 3.7 (1.3-4.6) g/dL Lipase 70 H (13-60) U/L HCG, Qual Negative (Negative) Imaging Data^: CT Abd/Pel: Attestation: I personally reviewed and interpreted this imaging study as follows: Radiologist's impression: Software [address] [address] [address] Scan Report Signed Patient: Job Ramirez Unit #: [id number] : 2000 Age/Sex: 20 / F ADM Date: 04/18/21 Loc: ER Room/Bed: Attending Dr: Ordering Provider/Ordering MD: Santi Day Date of Service: 04/19/21 Procedure(s): CT abdomen pelvis wo con [id number] Accession Number(s): [id number] Report Number: [id number] PROCEDURE INFORMATION: Exam: CT Abdomen And Pelvis Without Contrast Exam date and time: 04/19/2021 12:22 AM Age: 20 years old Clinical indication: Abdominal pain; Epigastric; Prior surgery; Surgery date: <1 month; Surgery type: Gastric sleeve x 8 days ago; Additional info: Lower abdomen and epigastric pain, gastric sleeve procedure done on April 11, 2021 TECHNIQUE: Imaging protocol: Computed tomography of the abdomen and pelvis without contrast. Radiation optimization: All CT scans at this facility use at least one of these dose optimization techniques: automated exposure control; mA and/or kV adjustment per patient size (includes targeted exams where dose is matched to clinical indication); or iterative reconstruction. COMPARISON: CT abdomen pelvis w con* [id number] 11/24/2018 6:50 AM RADIATION DOSE METRICS: Total DLP (mGy-cm): 1485.84 FINDINGS: Pleural spaces: Mild left pleural fluid collection. Liver: Normal. No mass. Gallbladder and bile ducts: Normal. No calcified stones. No ductal dilation. Pancreas: Normal. No ductal dilation. Spleen: Normal. No splenomegaly. Adrenal glands: Normal. No mass. Kidneys and ureters: Normal. No hydronephrosis. Stomach and bowel: Interval gastric sleeve surgery. Residual barium throughout the colon. Appendix: No evidence of appendicitis. Intraperitoneal space: Small amount of nonspecific free fluid in the dependent portion of the pelvis. Vasculature: Unremarkable. No abdominal aortic aneurysm. Lymph nodes: Unremarkable. No enlarged lymph nodes. Urinary bladder: Unremarkable as visualized. Reproductive: Unremarkable as visualized. Bones/joints: Unremarkable. No acute fracture. Soft tissues: Mild residual pneumoperitoneum and soft tissue emphysema in the anterior abdominal wall from the recent surgery. Other findings: Mild levoscoliosis. CT/CT abdomen pelvis wo con [id number] IMPRESSION: 1. Interval gastric sleeve surgery. 2. Residual barium throughout the colon. 3. Mild residual pneumoperitoneum and soft tissue emphysema in the anterior abdominal wall from the recent surgery. Discharge Plan Discharge Patient Disposition: Home Clinical Impression: Abdominal pain Qualifiers: Abdominal location: generalized Qualified Code(s): R10.84 - Generalized abdominal pain Condition: Stable Prescriptions: No Action Transderm-Scop 1 mg over 3 days patch 3 day 1 patch transdermal Q3D PRN (Reason: nausea and vomiting) Qty: 4 RF: 2 Zofran 4 mg tablet 4 mg PO Q6H PRN (Reason: nausea and vomiting) 20 Days Qty: 80 RF: 1 cyclobenzaprine 10 mg tablet 10 mg PO Q8H PRN (Reason: muscle spasm) 7 Days Qty: 21 RF: 1 oxycodone 5 mg tablet 5 mg PO Q6H PRN (Reason: pain) 7 Days Qty: 28 RF: 0 Discharge Orders: Discharge ED (Routine); Ordered 04/19/21 Ordered By: Vera Bates Referrals: Kobi Machado MD [Physician] - 1-3 days LUZ MARIA Oden FNP [Primary Care Provider] - Discharge Diet: Advance as tolerated Discharge Activity: Resume usual activity Patient Instructions: Abdominal Pain (ED), Opioid Safety Coding Level of Care Code ED Sterile Instrument Technician for Chg Fwd Exam Comprehensive
--- NOTE | 2021-04-19 00:22 | CTR_ITS ---
PROCEDURE INFORMATION: Exam: CT Abdomen And Pelvis Without Contrast Exam date and time: 04/19/2021 12:22 AM Age: 20 years old Clinical indication: Abdominal pain; Epigastric; Prior surgery; Surgery date: <1 month; Surgery type: Gastric sleeve x 8 days ago; Additional info: Lower abdomen and epigastric pain, gastric sleeve procedure done on April 11, 2021 TECHNIQUE: Imaging protocol: Computed tomography of the abdomen and pelvis without contrast. Radiation optimization: All CT scans at this facility use at least one of these dose optimization techniques: automated exposure control; mA and/or kV adjustment per patient size (includes targeted exams where dose is matched to clinical indication); or iterative reconstruction. COMPARISON: CT abdomen pelvis w con* [id number] 11/24/2018 6:50 AM RADIATION DOSE METRICS: Total DLP (mGy-cm): 1485.84 FINDINGS: Pleural spaces: Mild left pleural fluid collection. Liver: Normal. No mass. Gallbladder and bile ducts: Normal. No calcified stones. No ductal dilation. Pancreas: Normal. No ductal dilation. Spleen: Normal. No splenomegaly. Adrenal glands: Normal. No mass. Kidneys and ureters: Normal. No hydronephrosis. Stomach and bowel: Interval gastric sleeve surgery. Residual barium throughout the colon. Appendix: No evidence of appendicitis. Intraperitoneal space: Small amount of nonspecific free fluid in the dependent portion of the pelvis. Vasculature: Unremarkable. No abdominal aortic aneurysm. Lymph nodes: Unremarkable. No enlarged lymph nodes. Urinary bladder: Unremarkable as visualized. Reproductive: Unremarkable as visualized. Bones/joints: Unremarkable. No acute fracture. Soft tissues: Mild residual pneumoperitoneum and soft tissue emphysema in the anterior abdominal wall from the recent surgery. Other findings: Mild levoscoliosis. CT/CT abdomen pelvis con [id number] IMPRESSION: 1. Interval gastric sleeve surgery. 2. Residual barium throughout the colon. 3. Mild residual pneumoperitoneum and soft tissue emphysema in the anterior abdominal wall from the recent surgery. Radiation Dose CTDIVOL = (mGy): DLP = 1485.84 (mGy-cm)
[2021-04-19 00:32] VITALS: BP 99/76; PULSE 71; RESP 18; O2SAT 99
[2021-04-19 00:58] LABS: Basophils % 0.3 %; Eosinophils # 0.1 10^3/uL (0.0-0.8); Eosinophils % 1.7 %; Hemoglobin 13.7 g/dL (11.5-15.3); Lymphocytes # 1.7 10^3/uL (1.5-6.5); Lymphocytes % 27.3 %; Mean Corpuscular HGB Conc 29.8 g/dL (30.0-36.0); Mean Corpuscular Hemoglobin 29.1 pg (28.0-34.0); Mean Corpuscular Volume 97.7 fL (81-99); Mean Platelet Volume 9.9 fL (7.4-10.4); Monocytes # 0.7 10^3/uL (0.2-0.9); Monocytes % 11.4 %; Neutrophils # 3.56 10^3/uL (1.8-8.0); Nucleated Red Blood Cells % 0 %; Platelet Count 229 10^3/cmm (130-400); Red Blood Count 4.71 10^6/uL (4.1-5.3); Red Cell Distribution Width 12.4 % (12.1-15.1)
[2021-04-19] MEDS: morphine 4 mg/mL SDV 1 mL IVP (00:58)
[2021-04-19 01:00] VITALS: BP 114/73; PULSE 93; RESP 16; O2SAT 99
[2021-04-19 01:09] LABS: Alanine Aminotransferase 45 U/L (0-33); Albumin Level 3.1 g/dL (3.5-5.2); Alkaline Phosphatase 91 IU/L (35-105); Blood Urea Nitrogen 8 mg/dL (6-20); Calcium 8.9 mg/dL (8.5-10.5); Carbon Dioxide 18 mmol/L (22-29); Chloride 101 mmol/L (98-107); Globulin 3.7 g/dL (1.3-4.6); Glomerular Filtration Rate 157.3 mL/min (90-130); Glucose 71 mg/dL (65-115); Lipase 70 U/L (13-60); Osmolality Calculated 279 mOsm/kg (285-295); Sodium 136 mmol/L (136-145); Total Bilirubin 0.9 mg/dL (0.15-1.2); Total Protein 6.8 g/dL (6.6-8.7)
[2021-04-19 01:10] LABS: Anion Gap 21.2 (5-19); Aspartate Amino Transferase 38 U/L (0-32); Potassium 4.2 mmol/L (3.5-5.1)
[2021-04-19] MEDS: sodium chloride 0.9% 1,000 ML 999 ML IV (02:17)
[2021-04-19 02:40] LABS: HCG, Serum Qual Negative (Negative)
[2021-04-19 03:20] VITALS: BP 111/64; PULSE 67; RESP 18; O2SAT 100
[2021-04-19 03:23] VITALS: BP 111/64; PULSE 66; RESP 18; O2SAT 98
== END 2021-04-19 03:24 | disposition home or self-care (01) ==
PROVIDERS: Physician Assistant; Emergency Provider Emergency Medicine; PCP Nurse Practitioner Family
DX: R10.84 Generalized abdominal pain (principal)
CPT/HCPCS: 74176; 80053; 83690; 84703; 85025; 96361; 96374; 99284; J2270; J7030

== ENCOUNTER 2021-06-23 09:06 | Outpatient (CLI) | payer BC, SELFPAY ==
[2021-06-23 09:50] LABS: Basophils % 0.2 %; Eosinophils # 0.1 10^3/uL (0.0-0.8); Eosinophils % 1.8 %; Hematocrit 42.9 % (37.0-47.0); Hemoglobin 13.7 g/dL (11.5-15.3); Lymphocytes # 2.5 10^3/uL (1.5-6.5); Lymphocytes % 39.7 %; Mean Corpuscular HGB Conc 31.9 g/dL (30.0-36.0); Mean Corpuscular Hemoglobin 28.2 pg (28.0-34.0); Mean Corpuscular Volume 88.5 fl (81-99); Mean Platelet Volume 10.3 fL (7.4-10.4); Monocytes # 0.5 10^3/uL (0.2-0.9); Monocytes % 7.8 %; Neutrophils # 3.11 10^3/uL (1.8-8.0); Neutrophils % 50.3 %; Nucleated Red Blood Cells % 0 %; Platelet Count 263 10^3/cmm (130-400); Red Blood Count 4.85 10^6/uL (4.1-5.3); Red Cell Distribution Width 12.8 % (12.1-15.1); White Blood Count 6.2 10^3/uL (4.5-13.0)
[2021-06-23 10:32] LABS: Calcium 9.2 mg/dL (8.5-10.5)
[2021-06-23 10:38] LABS: Alanine Aminotransferase 14 U/L (0-33); Albumin Level 4.2 g/dL (3.5-5.2); Alkaline Phosphatase 83 IU/L (35-105); Anion Gap 13.2 (5-19); Aspartate Amino Transferase 14 U/L (0-32); Blood Urea Nitrogen 8 mg/dL (6-20); Calcium 9.2 mg/dL (8.5-10.5); Carbon Dioxide 25 mmol/L (22-29); Chloride 105 mmol/L (98-107); Chol HDL Ratio 3.05 mg/dL (0.0-4.40); Cholesterol 116 mg/dL (0-200); Ferritin 103 ng/mL (15-150); Globulin 2.8 g/dL (1.3-4.6); Glomerular Filtration Rate 157.3 mL/min (90-130); Glucose 79 mg/dL (65-115); HDL Cholesterol 38 mg/dL (60-100); Iron 102 ug/dL (37-145); LDL Cholesterol Calculated 60 mg/dL (50-129); LDL HDL Ratio 1.58 RATIO (0.00-3.22); Magnesium 1.9 mg/dL (1.7-2.3); Osmolality Calculated 285 mOsm/kg (285-295); Percent Saturation 41.6 % (20-50); Potassium 4.2 mmol/L (3.5-5.1); Sodium 139 mmol/L (136-145); Thyroid Stimulating Hormone 3.01 uIU/mL (0.27-4.20); Total Bilirubin 0.7 mg/dL (0.15-1.2); Total Iron Binding Capacity 245 mcg/dl; Triglycerides 91 mg/dL (0-150); Unsaturated Iron Binding 143 ug/dL (112-347); Vitamin B12 453 pg/mL (232-1245)
[2021-06-23 10:40] LABS: Parathyroid Hormone 19.1 pg/mL (15-65)
[2021-06-23 10:48] LABS: Folate Level 10.1 ng/mL (4.8-37.3)
== END 2021-06-23 09:07 | disposition home or self-care (01) ==
PROVIDERS: PCP Nurse Practitioner Family; Visit Provider Surgery
DX: E88.81 Metabolic syndrome and other insulin resistance (principal)
CPT/HCPCS: 36415; 80053; 80061; 82310; 82607; 82728; 82746; 83540; 83550; 83735; 83970; 84100; 84443; 85025

== ENCOUNTER 2021-08-04 18:10 | Emergency (ER) | payer BC, SELFPAY ==
[2021-08-04 18:58] VITALS: BP 106/58; PULSE 50; RESP 18; TEMP 36.8; O2SAT 96; BMI 29.4
[2021-08-04 20:05] VITALS: BP 107/63; PULSE 54; RESP 18; O2SAT 100
--- NOTE | 2021-08-04 21:10 | W.ED.SKABFB ---
HPI - Skin/Abscess/Foreign Bdy General: Chief complaint: Skin/Abscess/Foreign Body Stated complaint: has had mrsa, had staph in the back rt leg Time Seen by Provider: 08/04/21 21:09 History of Present Illness: HPI narrative: 20-year-old female comes in with some soreness to the right thigh. Patient reports lesion for the last 4 days. Patient has been taken some cephalexin from a prior prescription with minimal relief. Patient did report some drainage of the wound today. Review of Systems General: Reports: 10 or more systems reviewed and unremarkable except in HPI and below Skin/Breast: Reports: erythema and changing lesions [facility] ED PFSH: Medical History (Updated 08/04/21 @ 21:24 by NATHAN Alvarenga) Anxiety Anxiety and depression Bradycardia Chronic back pain Family planning, Depo-Provera contraception monitoring/administration History of PCOS Hypertension screen Left hip pain Medication management Medication management Morbid obesity Nausea Periodic heart flutter Recurrent infection of skin Right knee pain Vitamin D deficiency Surgical History GERD (gastroesophageal reflux disease) History of bone graft From Hip History of esophagogastroduodenoscopy (EGD) (~02/2020) History of foot surgery Left History of hip surgery error Status post laparoscopic sleeve gastrectomy Family History Other Diabetes Denies family history of Anesthesia complication Bleeding disorder Social History Alcohol intake: never Lives independently: Yes Household members: family Marital status: Single Current occupational status: employed Current occupation: Student History of recent travel: No Female Reproductive History: Date of last menstrual period: 07/27/21 Physical Exam Const: COMMON NORMALS: no acute distress and patient oriented x3 GENERAL APPEARANCE: cooperative HENMT: COMMON NORMALS: normocephalic and Normal external nose present HEAD & SCALP: normal to inspection and normocephalic NOSE: Normal external nose present Eye: GENERAL EYE: appearance normal, both eyes and all related structures Neck/C-Spine: COMMON NORMALS: full ROM Lymph: LYMPHATIC: no lymphadenopathy noted Chest: COMMONS NORMALS: normal inspection of the chest Resp: COMMON NORMALS: normal respiratory effort EFFORT & INSPECTION: Yes able to speak in complete sentences Cardio: COMMON NORMALS: regular rate and regular rhythm RATE: regular rate RHYTHM: regular rhythm GI: COMMON NORMALS: non-tender Back/Pelvis: COMMON NORMALS: thoracic and lumbar spine normal to inspection Extremity: COMMON NORMALS: normal to inspection Neuro: COMMON NORMALS: patient oriented x3 and moves all extremities Psych: COMMON NORMALS: mental status grossly normal and cooperative Skin: NARRATIVE SKIN EXAM: 4 cm area of redness with a central pustular lesion to the right thigh. No abscess or significant induration is noted to the area. Course Vital Signs: Vital signs: Vital Signs Temperature 98.6 F 08/04/21 21:15 Pulse Rate 54 L 08/04/21 21:15 Respiratory Rate 16 08/04/21 21:15 Blood Pressure 124/63 08/04/21 21:15 Pulse Oximetry 100 08/04/21 21:15 MDM - Skin/Abscess/Foreign Bdy MDM Narrative: Medical decision making narrative: Patient comes in for evaluation of skin infection to the right lower extremity in the thigh area. On exam there is a pustule with surrounding 4 cm area of redness. No induration or abscess is palpated. Differential diagnosis includes reaction to insect bite, cellulitis, abscess. No significant abscess was noted. We will cover patient with some Bactrim 1 tablet twice a day for the next 7 days. Patient will continue with mupirocin ointment. Encourage plenty of fluids and follow-up with primary care as needed. Patient was written 5 tablets of hydrocodone for breakthrough pain. Discharge Plan Discharge Patient Disposition: Home Clinical Impression: Cellulitis Qualifiers: Site of cellulitis: extremity Site of cellulitis of extremity: lower extremity Laterality: right Qualified Code(s): L03.115 - Cellulitis of right lower limb Condition: Stable Prescriptions: New Bactrim DS 800-160 mg tablet 1 tab PO DAILY 7 Days Qty: 14 RF: 0 hydrocodone-acetaminophen 5-325 mg tablet 1 tab PO Q8H PRN (Reason: pain) Qty: 5 RF: 0 No Action cephalexin 500 mg capsule 500 mg PO BID 7 Days Qty: 14 RF: 0 mupirocin 2 % ointment 1 applic topical BID 30 Days Qty: 15 RF: 0 Zofran 4 mg tablet 4 mg PO Q6H PRN (Reason: nausea and vomiting) 20 Days Qty: 80 RF: 1 Discharge Orders: Discharge ED (Routine); Ordered 08/04/21 Ordered By: Lyndon Tierney Referrals: LUZ MARIA Oden, CERTIFIED LACTATION COUNSELOR [Primary Care Provider] - Discharge Diet: Usual diet Discharge Activity: Increase activity as tolerated Patient Instructions: Cellulitis (ED), Opioid Safety Activity Restrictions/Additional Instructions: Warm moist pack to the pustule, lesion, until clearance. Use Bactrim, sulfamethoxazole?trimethoprim, 1 tablet twice a day for 7 days. Drink plenty of water. Use Hibiclens soap daily with shower for the next week. Follow-up with primary care as needed. Return to the ED for new concerns. Require Hibiclens soap or near equivalent from pharmacy. You should be able to buy this [id number]. Coding Level of Care Code ED Mobile Therapist for Destiny Kidd
[2021-08-04 21:15] VITALS: BP 124/63; PULSE 54; RESP 16; TEMP 37; O2SAT 100
[2021-08-04] MEDS: HYDROcodone-acetaminophen 5-325 mg Tablet 1 TAB PO (21:27)
[2021-08-04 21:28] VITALS: BP 109/55; PULSE 52; RESP 16; TEMP 37; O2SAT 100
[2021-08-04] MEDS: sulfamethoxazole-trimeth DS 160-800 mg Tablet 1 TAB PO (21:28)
== END 2021-08-04 21:36 | disposition home or self-care (01) ==
PROVIDERS: Emergency Provider Nurse Practitioner Family; PCP Nurse Practitioner Family
DX: L03.115 Cellulitis of right lower limb (principal)
CPT/HCPCS: 99283

== ENCOUNTER → 2021-08-22 18:25 | Outpatient (BNVA) | payer BC, SELFPAY | PROVIDERS: PCP Nurse Practitioner Family; Visit Provider Registered Nurse Neonatal Intensive Care | DX: Z20.822 Contact with and (suspected) exposure to COVID-19 (principal) | CPT/HCPCS: 87426; 87635 ==

== ENCOUNTER 2021-08-24 12:39 | Outpatient (CLI) | payer BC, SELFPAY ==
[2021-08-25 14:54] LABS: Coronavirus Test Green County Not Detected
== END 2021-08-24 12:40 | disposition home or self-care (01) ==
LOC: LAB 12:42
PROVIDERS: PCP Nurse Practitioner Family; Visit Provider Emergency Medicine
DX: Z20.822 Contact with and (suspected) exposure to COVID-19 (principal)
CPT/HCPCS: 87635

== ENCOUNTER → 2021-10-02 12:34 | Outpatient (BNVA) | payer BC, SELFPAY | PROVIDERS: PCP Nurse Practitioner Family; Visit Provider Registered Nurse Neonatal Intensive Care | DX: N39.0 Urinary tract infection, site not specified (principal) | CPT/HCPCS: 81000 ==

== ENCOUNTER 2021-10-28 18:27 | Emergency (ER) | payer BC, SELFPAY ==
[2021-10-28 20:58] LABS: Adenovirus Not Detected (NOT DETECT); Chlamydia Pneumoniae Not Detected (NOT DETECT); Coronavirus 229E,HKU1,NL63,OC4 Detected (NOT DETECT); Human Metapneumovirus Not Detected (NOT DETECT); Human Rhinovirus/Enterovirus Not Detected (NOT DETECT); Influenza A Not Detected (NOT DETECT); Influenza A H1 Not Detected (NOT DETECT); Influenza A H1-2009 Not Detected (NOT DETECT); Influenza A H3 Not Detected (NOT DETECT); Influenza B Not Detected (NOT DETECT); Mycoplasma Pneumoniae Not Detected (NOT DETECT); Parainfluenza Virus Type 1 Not Detected (NOT DETECT); Parainfluenza Virus Type 2 Not Detected (NOT DETECT); Parainfluenza Virus Type 3 Not Detected (NOT DETECT); Parainfluenza Virus Type 4 Not Detected (NOT DETECT); Respiratory Syncytial Virus A Not Detected (NOT DETECT); Respiratory Syncytial Virus B Not Detected (NOT DETECT); SARS-COV-2 Not Detected (NOT DETECT)
== END 2021-10-28 19:04 | disposition left against medical advice (07) ==
LOC: ER 19:03
PROVIDERS: Family Medicine; Emergency Provider Family Medicine; PCP Nurse Practitioner Family
DX: Z53.21 Procedure and treatment not carried out due to patient leaving prior to being seen by health care provider (principal)
CPT/HCPCS: 87635

== ENCOUNTER → 2021-11-01 14:24 | Outpatient (BNVA) | payer BC, SELFPAY | PROVIDERS: PCP Nurse Practitioner Family; Visit Provider Registered Nurse Neonatal Intensive Care | DX: Z20.822 Contact with and (suspected) exposure to COVID-19 (principal) | CPT/HCPCS: 87635 ==

== ENCOUNTER 2022-07-05 15:31 | Emergency (ER) | payer BC, MEDICAID, SELFPAY ==
[2022-07-05 15:36] VITALS: BP 119/62; PULSE 70; RESP 16; TEMP 36.7; O2SAT 99; BMI 27.4
--- NOTE | 2022-07-05 15:52 | USR_ITS ---
PROCEDURE INFORMATION: Exam: US , Limited Exam date and time: 07/05/2022 5:37 PM Age: 21 years old Clinical indication: complicated by abdominal or pelvic pain; Lower; First trimester (<14 weeks 0 days); Gestational age or lmp: 8 w 2 d; ; Additional info: Ob LABS AND CLINICAL REPORTS: Serum Choriogonadotropin (HCG): 4800 mIU/mL Last menstrual period start date: 05/08/2022 Gestational age (Established): 8 w 2 d Estimated due date (Established): 02/12/2023 TECHNIQUE: Imaging protocol: Real-time ultrasound of the maternal uterus with image documentation. Exam focused on the clinical indication. COMPARISON: CT abdomen pelvis wo con [id number] 04/19/2021 2:51 AM FINDINGS: Gestation: Intrauterine gestation. heart rate: 176 bpm presentation: Transverse BIOMETRY: Gestational age (AUA): 8 w 2 d US/US OB limited [id number] IMPRESSION: Live intrauterine gestation.
[2022-07-05 16:43] LABS: Basophils % 0.2 %; Eosinophils # 0.1 10^3/uL (0.0-0.8); Eosinophils % 1.3 %; Hematocrit 36.3 % (37.0-47.0); Hemoglobin 12.2 g/dL (11.5-15.3); Lymphocytes # 2.8 10^3/uL (0.8-4.8); Lymphocytes % 33.7 %; Mean Corpuscular HGB Conc 33.6 g/dL (30.0-36.0); Mean Corpuscular Volume 89.4 fl (81-99); Mean Platelet Volume 9.6 fL (7.4-10.4); Monocytes # 0.8 10^3/uL (0.2-0.9); Monocytes % 9.4 %; Neutrophils # 4.57 10^3/uL (1.8-7.7); Neutrophils % 55.3 %; Nucleated Red Blood Cells % 0 %; Platelet Count 257 10^3/cmm (130-400); Red Blood Count 4.06 10^6/uL (4.1-5.3); Red Cell Distribution Width 12.4 % (12.1-15.1); White Blood Count 8.3 10^3/uL (4.0-10.0)
--- NOTE | 2022-07-05 16:53 | ED_ITS ---
HPI - General: Chief complaint: OB/Uterine Contractions Stated complaint: atopic preg, 8weeks Source: patient Mode of arrival: ambulatory History of Present Illness: 21-year-old female who presents to the emergency room with complaints of right pelvic pain and cramping. She estimates she is approximately 8 weeks gestation she has not had confirmation of intrauterine to this point she has not had any vaginal bleeding but has had worsening cramping throughout the day. 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 G2, P0 Onset (ago): day(s) Pain Consistency: constant Location: pelvis Severity: moderate Quality: Cramping Relieving factors: none Exacerbating factors: none Vaginal discharge: none Vaginal bleeding: none Date of Last Menstrual Period: 07/27/21 OB History - Previous Pregnancies: miscarriage Associated symptoms: Reports abdominal pain; Deny dyspareunia, dysuria, headache(s), malaise, nausea, rash, seizures, short of breath, syncope, vaginal bleeding, vaginal discharge, visual changes, vomiting or weakness Review of Systems Const: Denies: fever(s), chills, fatigue or malaise ENMT: Denies: throat pain, ear or mastoid pain, nasal discharge or nasal congestion Card: Denies: syncope Resp: Denies: dyspnea, productive cough or non-productive cough GI: Reports: abdominal pain; Denies: nausea or vomiting : Reports: pelvic pain; Denies: flank pain, difficulty voiding, dysuria, urinary frequency, urinary urgency, vaginal bleeding, vaginal discharge or dyspareunia Skin/Breast: Denies: rash or pruritus Neuro: Denies: headache(s) PFSH ED PFSH: Medical History Anxiety Anxiety and depression Bradycardia Chronic back pain Family planning, Depo-Provera contraception monitoring/administration History of PCOS Hypertension screen Left hip pain Medication management Medication management Morbid obesity Nausea Periodic heart flutter Pharyngitis Recurrent infection of skin Right knee pain Right upper quadrant abdominal pain Vitamin D deficiency Surgical History GERD (gastroesophageal reflux disease) History of bone graft From Hip History of esophagogastroduodenoscopy (EGD) (~02/2020) History of foot surgery Left History of hip surgery error Status post laparoscopic sleeve gastrectomy Family History Other Diabetes Denies family history of Anesthesia complication Bleeding disorder Social History Smoking and tobacco status: never smoked Alcohol intake: never Lives independently: Yes Household members: family Marital status: Single Current occupational status: employed Current occupation: Student History of recent travel: No Female Reproductive History: Date of last menstrual period: 07/27/21 Physical Exam Const: COMMON NORMALS: no acute distress GENERAL APPEARANCE: cooperative and comfortable ORIENTATION/CONSCIOUSNESS: Yes awake, Yes oriented to person, Yes oriented to place and Yes oriented to time HENMT: COMMON NORMALS: normocephalic, atraumatic and hearing grossly normal bi laterally HEAD & SCALP: normocephalic and atraumatic Resp: COMMON NORMALS: normal respiratory effort, No retractions, No use of accessory muscles and clear to auscultation bilaterally AUSCULTATION: clear to auscultation bilaterally Cardio: COMMON NORMALS: regular rate, regular rhythm and No murmurs present (Cardio) RATE: regular rate RHYTHM: regular rhythm GI: COMMON NORMALS: Soft to palpation and No hepatosplenomegaly present AUSCULTATION: Yes normoactive bowel sounds PALPATION: Yes Soft to palpation, No Tenderness to palpation present (GI), No Guarding due to palpation present (GI) and Yes No hepatosplenomegaly present : SPECULUM EXAM - VAGINA: No vaginal bleeding OB/EXTERNAL & SPECULUM: No vaginal bleeding Extremity: COMMON NORMALS: normal to inspection, capillary refill normal, no clubbing, cyanosis or edema, no calf tenderness and no pedal edema Neuro: SENSORIUM/ORIENTATION: Yes oriented to person, Yes oriented to place and Yes oriented to time Skin: COMMON NORMALS: no rashes or lesions noted GENERAL SKIN EXAM: no rashes or lesions noted Course Vital Signs: Vital signs: Vital Signs Temperature 98.1 F 07/05/22 15:36 Pulse Rate 55 L 07/05/22 18:21 Respiratory Rate 16 07/05/22 15:36 Blood Pressure 129/55 07/05/22 18:21 Pulse Oximetry 98 07/05/22 18:21 Oxygen Delivery Me thod 07/05/22 18:21 MDM - OB/Uterine Contractions Medical Decision Making HCG 48,000. Pelvic ultrasound confirms intrauterine of expected 8 weeks gestation. Discharge home follow-up with global security architect Medical Records I reviewed the patient's medical records. Lab Data I reviewed the patient's lab results. : 07/05/22 16:34 07/05/22 16:34 Radiology Impressions Obstetrics Ultrasound 07/05/22 15:52 IMPRESSION: Live intrauterine gestation. Laboratory Results WBC 8.3 10^3/uL (4.0-10.0) 07/05/22 16:34 RBC 4.06 10^6/uL (4.1-5.3) L 07/05/22 16:34 Hgb 12.2 g/dL (11.5-15.3) 07/05/22 16:34 Hct 36.3 % (37.0-47.0) L 07/05/22 16:34 MCV 89.4 fl (81-99) 07/05/22 16:34 MCH 30.0 pg (28.0-34.0) 07/05/22 16:34 MCHC 33.6 g/dL (30.0-36.0) 07/05/22 16:34 RDW 12.4 % (12.1-15.1) 07/05/22 16:34 Plt Count 257 10^3/cmm (130-400) 07/05/22 16:34 MPV 9.6 fL (7.4-10.4) 07/05/22 16:34 Neut % (Auto) 55.3 % 07/05/22 16:34 Lymph % (Auto) 33.7 % 07/05/22 16:34 [place] % (Auto) 9.4 % 07/05/22 16:34 Eos % (Auto) 1.3 % 07/05/22 16:34 Baso % (Auto) 0.2 % 07/05/22 16:34 Neut # (Auto) 4.57 10^3/uL (1.8-7.7) 07/05/22 16:34 Lymph # (Auto) 2.8 10^3/uL (0.8-4.8) 07/05/22 16:34 [place] # (Auto) 0.8 10^3/uL (0.2-0.9) 07/05/22 16:34 Eos # (Auto) 0.1 10^3/uL (0.0-0.8) 07/05/22 16:34 Baso # (Auto) 0.0 10^3/uL (0.0-0.1) 07/05/22 16:34 Nucleated RBC % (auto) 0 % 07/05/22 16:34 Nucleated RBCs # 0.0 /100WBC 07/05/22 16:34 Sodium 142 mmol/L (136-145) 07/05/22 16:34 Potassium 3.8 mmol/L (3.5-5.1) 07/05/22 16:34 Chloride 106 mmol/L (98-107) 07/05/22 16:34 Carbon Dioxide 24 mmol/L (22-29) 07/05/22 16:34 Anion Gap 15.8 (5-19) 07/05/22 16:34 BUN 6 mg/dL (6-20) 07/05/22 16:34 Creatinine 0.6 mg/dL (0.5-0.9) 07/05/22 16:34 GFR Calculation 126.2 mL/min (90-130) 07/05/22 16:34 Glucose 85 mg/dL (65-115) 07/05/22 16:34 Calculated Osmolality 291 mOsm/kg (285-295) 07/05/22 16:34 Calcium 8.8 mg/dL (8.5-10.5) 07/05/22 16:34 Ser , Semi-Qnt 92889.00 mIU/mL 07/05/22 16:34 Blood Type A Positive 07/05/22 16:34 Rho(D) Type Positive 07/05/22 16:34 Discharge Plan Discharge Patient Disposition: Home Clinical Impression: 8 weeks gestation of Condition: Stable Prescriptions: No Action 28-800 mg-mcg Tablet 1 tab PO DAILY Discharge Orders: Discharge ED (Routine); Ordered 07/05/22 Ordered By: Frank Madden Referrals: César Johnson FNP [Primary Care Provider] - Discharge Diet: Usual diet Discharge Activity: Increase activity as tolerated Patient Instructions: Opioid Safety, Pain Management Activity Restrictions/Additional Instructions: Follow-up with your global security architect as previously scheduled. Coding Level of Care Code ED Aquatic Centre Manager for Destiny Kidd
[2022-07-05 17:32] LABS: Anion Gap 15.8 (5-19); Blood Urea Nitrogen 6 mg/dL (6-20); Calcium 8.8 mg/dL (8.5-10.5); Carbon Dioxide 24 mmol/L (22-29); Chloride 106 mmol/L (98-107); Glomerular Filtration Rate 126.2 mL/min (90-130); Glucose 85 mg/dL (65-115); Osmolality Calculated 291 mOsm/kg (285-295); Potassium 3.8 mmol/L (3.5-5.1); Sodium 142 mmol/L (136-145)
[2022-07-05 18:21] VITALS: BP 129/55; PULSE 55; O2SAT 98
== END 2022-07-05 18:20 | disposition home or self-care (01) ==
PROVIDERS: Emergency Provider Family Medicine; PCP Registered Nurse
DX: O26.891 Other specified pregnancy related conditions, first trimester (principal); R10.2 Pelvic and perineal pain; Z3A.08 8 weeks gestation of pregnancy
CPT/HCPCS: 36415; 76815; 80048; 84702; 85025; 86900; 99284

== ENCOUNTER 2022-09-07 13:39 | Emergency (ER) | payer BC, MEDICAID, SELFPAY ==
[2022-09-07 13:47] VITALS: BP 97/53; PULSE 79; RESP 18; O2SAT 100
[2022-09-07 14:30] VITALS: BP 113/60; PULSE 75; RESP 14; O2SAT 100
--- NOTE | 2022-09-07 14:35 | PC.NURSE ---
heart tones 140s via doppler
[2022-09-07] MEDS: sodium chloride 0.9% 1,000 ML 999 ML IV (14:48)
[2022-09-07 14:49] LABS: Basophils % 0.1 %; Eosinophils # 0.1 10^3/uL (0.0-0.8); Eosinophils % 1.2 %; Hematocrit 38.4 % (37.0-47.0); Hemoglobin 13.2 g/dL (11.5-15.3); Lymphocytes # 2.3 10^3/uL (0.8-4.8); Lymphocytes % 23.5 %; Mean Corpuscular HGB Conc 34.4 g/dL (30.0-36.0); Mean Corpuscular Hemoglobin 31.1 pg (28.0-34.0); Mean Corpuscular Volume 90.4 fl (81-99); Mean Platelet Volume 9.8 fL (7.4-10.4); Monocytes # 0.8 10^3/uL (0.2-0.9); Neutrophils # 6.53 10^3/uL (1.8-7.7); Neutrophils % 66.9 %; Nucleated Red Blood Cells % 0 %; Platelet Count 231 10^3/cmm (130-400); Red Blood Count 4.25 10^6/uL (4.1-5.3); Red Cell Distribution Width 12.9 % (12.1-15.1); White Blood Count 9.8 10^3/uL (4.0-10.0)
--- NOTE | 2022-09-07 15:08 | ED_ITS ---
HPI - Back Pain/Injury General: Chief Complaint: Back Pain/Injury Stated Complaint: 17 weeks, chest pain Time Seen by Provider: 09/07/22 14:06 Source: patient Mode of arrival: ambulatory History of Present Illness: 21-year-old female G2, P0 SAB 1 at 17 weeks gestation presents to the emergency room with complaints of epigastric pain radiating to the right upper quadrant with cramping discomfort. Began this afternoon but 20 minutes prior to arrival she denies any dysuria urgency or frequency any hematuria no pelvic cramping or pain no vaginal discharge or bleeding. She has had problems with reflux in the past. MD elicited complaint: back pain Onset (ago): hour(s) Timing: constant Severity: moderate Similar Symptoms Previously: Yes Quality: aching Location: right upper back Exacerbating factors: none Relieving factors: none Associated symptoms: Reports abdominal pain and nausea; Deny arthralgias, chills, change in bowel habits, difficulty walking, dysuria, fatigue, fecal incontinence, fever(s), hematuria, myalgias, numbness, syncope, tingling/numbness/burning, urinary frequency, urinary urgency, vomiting or weakness Work related injury: No Review of Systems Const: Denies: fever(s), chills or fatigue ENMT: Denies: throat pain, ear or mastoid pain, nasal discharge or nasal congestion Card: Denies: syncope Resp: Denies: dyspnea, productive cough or non-productive cough GI: Reports: abdominal pain and nausea; Denies: vomiting, fecal incontinence or change in bowel habits : Denies: dysuria, urinary urgency or hematuria Skin/Breast: Denies: rash or pruritus Neuro: Denies: difficulty walking [facility] ED PFSH: Medical History Anxiety Anxiety and depression Bradycardia Chronic back pain Family planning, Depo-Provera contraception monitoring/administration History of PCOS Hypertension screen Left hip pain Medication management Medication management Morbid obesity Nausea Periodic heart flutter Pharyngitis Recurrent infection of skin Right knee pain Right upper quadrant abdominal pain Vitamin D deficiency Surgical History GERD (gastroesophageal reflux disease) History of bone graft From Hip History of esophagogastroduodenoscopy (EGD) (~02/2020) History of foot surgery Left History of hip surgery error Status post laparoscopic sleeve gastrectomy Family History Other Diabetes Denies family history of Anesthesia complication Bleeding disorder Social History Smoking and tobacco status: never smoked Alcohol intake: never Lives independently: Yes Household members: family Marital status: Single Current occupational status: employed Current occupation: Student History of recent travel: No Female Reproductive History: Date of last menstrual period: 05/05/22 Physical Exam Const: COMMON NORMALS: no acute distress GENERAL APPEARANCE: cooperative a nd comfortable ORIENTATION/CONSCIOUSNESS: Yes awake, Yes oriented to person, Yes oriented to place and Yes oriented to time HENMT: COMMON NORMALS: normocephalic, atraumatic and hearing grossly normal bilaterally HEAD & SCALP: normocephalic and atraumatic Resp: COMMON NORMALS: normal respiratory effort, No retractions, No use of accessory muscles and clear to auscultation bilaterally AUSCULTATION: clear to auscultation bilaterally Cardio: COMMON NORMALS: regular rate, regular rhythm and No murmurs present (Cardio) RATE: regular rate RHYTHM: regular rhythm GI: COMMON NORMALS: Soft to palpation and No hepatosplenomegaly present A USCULTATION: Yes normoactive bowel sounds PALPATION: Yes Soft to palpation, No Tenderness to palpation present (GI), No Guarding due to palpation present (GI) and Yes No hepatosplenomegaly present Extremity: COMMON NORMALS: normal to inspection, capillary refill normal, no clubbing, cyanosis or edema, no calf tenderness and no pedal edema Neuro: SENSORIUM/ORIENTATION: Yes oriented to person, Yes oriented to place and Yes oriented to time Skin: COMMON NORMALS: no rashes or lesions noted GENERAL SKIN EXAM: no rashes or lesions noted Course Vital Signs: Vital signs: Vital Signs Pulse Rate 75 09/07/22 14:30 Respiratory Rate 14 09/07/22 14:30 Blood Pressure 113/60 09/07/22 14:30 Pulse Oximetry 100 09/07/22 14:30 Oxygen Delivery Me thod 09/07/22 14:30 MDM - Back Pain/Injury Medical Decision Making Ultrasound gallbladder shows large amount of stones and sludge. Patient description sounds like she had a biliary colic episode. Likely precipitated by eating likely accelerated by the fact that she is . Unfortunately she will probably be a difficult issue for throughout the remainder of the schedule enough on her AUTOMOTIVE DESIGN LAYOUT DRAFTER could consider referral for cholecystectomy if felt appropriate she does not have acute cholecystitis or signs of obstruction now can be discharged Long discussion about dietary adjustments to avoid further exacerbations encouraged to follow-up with a AUTOMOTIVE DESIGN LAYOUT DRAFTER as soon as she is able. Medical Records I reviewed the patient's medical records. Labs I reviewed the patient's lab results. 09/07/22 14:40 09/07/22 14:40 Radiology Impressions Gallbladder Ultrasound 09/07/22 15:08 IMPRESSION: 1. Mild hepatomegaly. 2. Cholelithiasis and gallbladder sludge. No gallbladder wall thickening or pericholecystic fluid. 3. Normal common bile duct 4. No hydronephrosis in RIGHT kidney. Laboratory Results WBC 9.8 10^3/uL (4.0-10.0) 09/07/22 14:40 RBC 4.25 10^6/uL (4.1-5.3) 09/07/22 14:40 Hgb 13.2 g/dL (11.5-15.3) 09/07/22 14:40 Hct 38.4 % (37.0-47.0) 09/07/22 14:40 MCV 90.4 fl (81-99) 09/07/22 14:40 MCH 31.1 pg (28.0-34.0) 09/07/22 14:40 MCHC 34.4 g/dL (30.0-36.0) 09/07/22 14:40 RDW 12.9 % (12.1-15.1) 09/07/22 14:40 Plt Count 231 10^3/cmm (130-400) 09/07/22 14:40 MPV 9.8 fL (7.4-10.4) 09/07/22 14:40 Neut % (Auto) 66.9 % 09/07/22 14:40 Lymph % (Auto) 23.5 % 09/07/22 14:40 [place] % (Auto) 8.0 % 09/07/22 14:40 Eos % (Auto) 1.2 % 09/07/22 14:40 Baso % (Auto) 0.1 % 09/07/22 14:40 Neut # (Auto) 6.53 10^3/uL (1.8-7.7) 09/07/22 14:40 Lymph # (Auto) 2.3 10^3/uL (0.8-4.8) 09/07/22 14:40 [place] # (Auto) 0.8 10^3/uL (0.2-0.9) 09/07/22 14:40 Eos # (Auto) 0.1 10^3/uL (0.0-0.8) 09/07/22 14:40 Baso # (Auto) 0.0 10^3/uL (0.0-0.1) 09/07/22 14:40 Nucleated RBC % (auto) 0 % 09/07/22 14:40 Nucleated RBCs # 0.0 /100WBC 09/07/22 14:40 Sodium 136 mmol/L (136-145) 09/07/22 14:40 Potassium 3.6 mmol/L (3.5-5.1) 09/07/22 14:40 Chloride 103 mmol/L (98-107) 09/07/22 14:40 Carbon Dioxide 24 mmol/L (22-29) 09/07/22 14:40 Anion Gap 12.6 (5-19) 09/07/22 14:40 BUN 7 mg/dL (6-20) 09/07/22 14:40 Creatinine 0.4 mg/dL (0.5-0.9) L 09/07/22 14:40 GFR Calculation 201.5 mL/min (90-130) H 09/07/22 14:40 Glucose 75 mg/dL (65-115) 09/07/22 14:40 Calculated Osmolality 279 mOsm/kg (285-295) L 09/07/22 14:40 Calcium 8.8 mg/dL (8.5-10.5) 09/07/22 14:40 Urine Color Yellow (Yellow) 09/07/22 15:55 Urine Appearance Clear (CLEAR) 09/07/22 15:55 Urine pH 6.5 (5-7) 09/07/22 15:55 Ur Specific Fletcher 1.015 (1.005-1.030) 09/07/22 15:55 Urine Protein Neg (Negative) 09/07/22 15:55 Urine Glucose (UA) Norm (Normal) 09/07/22 15:55 Urine Ketones Negative (Negative) 09/07/22 15:55 Urine Blood Neg (Negative) 09/07/22 15:55 Urine Nitrate Negative (Negative) 09/07/22 15:55 Urine Bilirubin Neg (Negative) 09/07/22 15:55 Urine Urobilinogen 1 mg/dL (Negative) H 09/07/22 15:55 Ur Leukocyte Esterase Trace (Negative) H 09/07/22 15:55 Amorphous Sediment Not Reportable 09/07/22 15:55 Discharge Plan Discharge Patient Disposition: Home Clinical Impression: Biliary colic, Currently Condition: Stable Prescriptions: New omeprazole 20 mg capsule,delayed release(DR/EC) 20 mg PO DAILY 28 Days Qty: 30 0RF No Action 28-800 mg-mcg Tablet 1 tab PO DAILY Discharge Orders: Discharge ED (Routine); Ordered 09/07/22 Ordered By: Frank Madden Referrals: César Johnson, CLINICAL ORTHOPTIST [Primary Care Provider] - Discharge Diet: Usual diet Discharge Activity: Resume usual activity Patient Instructions: Abdominal Pain (ED), Opioid Safety, Pain Management Activity Restrictions/Additional Instructions: You were seen today for epigastric abdominal pain. You have a significant number of gallstones. Your symptoms today were likely from biliary colic. Your white count is normal and your liver enzymes are normal. Recommend a very very low fat diet for the remainder your we will start you on omeprazole. Follow-up with your primary cocktail lounge manager within the next week for further management. Coding Level of Care Code ED Wash House Supervisor for Destiny Kidd
--- NOTE | 2022-09-07 15:08 | US_ITS ---
WS: [id number] ULTRASOUND ABDOMEN LIMITED CLINICAL INFORMATION: RUQ/epigastric pain COMPARISON: CT April 19, 2021 FINDINGS: Liver Size: Mild hepatomegaly. Craniocaudal length: 17.2 cm Echogenicity: Normal. Surface nodularity: None. Mass (size and location): None. Bile ducts Intrahepatic ducts: Normal. Common bile duct diameter: 6.3 mm. Gallbladder Cholelithiasis. Sludge. Gallstones: Present Gallbladder sludge: Present Gallbladder wall thickening: None. Pericholecystic fluid: None. Sonographic Worley sign: Absent. Pancreas Normal as visualized. Right kidney: Normal. Hydronephrosis: None. Size: 10.3 x 5.3 x 4.9 cm. Abdominal aorta and IVC Visualized portions are normal. Ascites: None. US/US gall bladder [id number] IMPRESSION: 1. Mild hepatomegaly. 2. Cholelithiasis and gallbladder sludge. No gallbladder wall thickening or pe richolecystic fluid. 3. Normal common bile duct 4. No hydronephrosis in RIGHT kidney.
[2022-09-07 15:11] LABS: Anion Gap 12.6 (5-19); Blood Urea Nitrogen 7 mg/dL (6-20); Calcium 8.8 mg/dL (8.5-10.5); Carbon Dioxide 24 mmol/L (22-29); Chloride 103 mmol/L (98-107); Glomerular Filtration Rate 201.5 mL/min (90-130); Glucose 75 mg/dL (65-115); Osmolality Calculated 279 mOsm/kg (285-295); Potassium 3.6 mmol/L (3.5-5.1); Sodium 136 mmol/L (136-145)
[2022-09-07 16:04] LABS: Glucose Urine UA Norm (Normal); Ketones Urine Negative (Negative); Protein Urine Neg (Negative); Specific Gravity, Urine 1.015 (1.005-1.030); Urine Appearance Clear (CLEAR); Urine Color Yellow (Yellow); pH Urine 6.5 (5-7)
[2022-09-07 16:05] LABS: Add Urine Microscopic? YES; Bilirubin Urine Neg (Negative); Blood Urine Neg (Negative); Leukocyte Esterase Urine Trace (Negative); Nitrate Urine Negative (Negative); Urobilinogen Urine 1 mg/dL (Negative)
[2022-09-07 16:12] VITALS: BP 112/66; PULSE 70; RESP 14; O2SAT 99
[2022-09-07 17:07] LABS: Bacteria Urine TRACE /hpf; RBC Urine 0-4 /hpf (0-2); Squamous Epithelial Cell Urine 25-40 /hpf (0-5)
[2022-09-07 17:08] LABS: Add Urine Culture? No
== END 2022-09-07 16:20 | disposition home or self-care (01) ==
PROVIDERS: Emergency Provider Family Medicine; PCP Registered Nurse
DX: O26.892 Other specified pregnancy related conditions, second trimester (principal); K80.70 Calculus of gallbladder and bile duct without cholecystitis without obstruction; Z3A.17 17 weeks gestation of pregnancy
CPT/HCPCS: 76705; 80048; 81001; 85025; 99284; J7030

== ENCOUNTER → 2022-09-16 15:36 | Outpatient (BNVA) | payer BC, MEDICAID, SELFPAY | PROVIDERS: PCP Registered Nurse; Visit Provider Registered Nurse Neonatal Intensive Care | DX: J02.9 Acute pharyngitis, unspecified (principal); R50.9 Fever, unspecified | CPT/HCPCS: 87071; 87400; 87880 ==

== ENCOUNTER → 2022-09-28 13:29 | Outpatient (BNVA) | payer BC, MEDICAID, SELFPAY | PROVIDERS: PCP Registered Nurse; Visit Provider Nurse Practitioner | DX: J32.9 Chronic sinusitis, unspecified (principal) | CPT/HCPCS: 87400; 87426 ==

== ENCOUNTER → 2023-05-28 16:48 | Outpatient (BNVA) | payer BC, MEDICAID, SELFPAY | PROVIDERS: PCP Registered Nurse; Visit Provider Registered Nurse Neonatal Intensive Care | DX: Z20.822 Contact with and (suspected) exposure to COVID-19 (principal); N89.8 Other specified noninflammatory disorders of vagina | CPT/HCPCS: 81000; 87426 ==

== ENCOUNTER → 2023-08-18 16:29 | Outpatient (BNVA) | payer MEDICAID, SELFPAY | PROVIDERS: PCP Registered Nurse; Visit Provider Family Medicine | DX: M54.50 Low back pain, unspecified (principal) | CPT/HCPCS: 81000 ==

== ENCOUNTER 2023-08-21 23:18 | Emergency (ER) | payer MEDICAID, SELFPAY ==
[2023-08-21 23:20] VITALS: BP 117/75; PULSE 88; RESP 18; TEMP 36.7; O2SAT 100
--- NOTE | 2023-08-21 23:32 | XRR_ITS ---
PROCEDURE INFORMATION: Exam: XR Chest Exam date and time: 08/21/2023 11:35 PM Age: 22 years old Clinical indication: Cough and fever; Prior surgery; Surgery date: 6+ months; Surgery type: Gastric sleeve; Patient HX: Cough with fever TECHNIQUE: Imaging protocol: Radiologic exam of the chest. Views: 1 view. COMPARISON: CR XR chest 2V* [id number] 11/24/2018 5:18 AM FINDINGS: Lungs: Unremarkable. No consolidation. Pleural spaces: Unremarkable. No pleural effusion. No pneumothorax. Heart/Mediastinum: Unremarkable. No cardiomegaly. Bones/joints: Unremarkable. XR/XR chest 1V portable [id number] IMPRESSION: No acute findings.
--- NOTE | 2023-08-21 23:37 | W.ED.URI ---
HPI - URI/Sore Throat General: Chief Complaint: Upper Respiratory Infection Stated Complaint: congestion, fever, body ache Time Seen by Provider: 08/21/23 23:21 Source: patient Mode of arrival: ambulatory Limitations: no limitations History of Present Illness: 22-year-old female who is currently 22 weeks states that over the last 8 days she has had congestion along with sore throat cough and body aches. States she also had headaches as well. She denies any vaginal bleeding denies any chest pain she denies any worsening proving factors. Associated symptoms: Reports headache(s); Deny abdominal pain, chills, chest pain, diarrhea, fever(s), nausea or vomiting Review of Systems Const: Reports: body aches; Denies: fever(s), chills or change in appetite Eyes: Denies: blurry vision or eye discomfort ENMT: Reports: throat pain; Denies: dental pain Card: Denies: chest pain Resp: Reports: non-productive cough; Denies: dyspnea GI: Denies: abdominal pain, nausea, vomiting or diarrhea : Denies: dysuria Musc: Denies: neck pain or back pain Skin/Breast: Denies: rash Neuro: Reports: headache(s) PFSH ED PFSH: Medical History Anxiety Anxiety and depression Bradycardia Chronic back pain Family planning, Depo-Provera contraception monitoring/administration History of PCOS Hypertension screen Left hip pain Medication management Medication management Morbid obesity Nausea Periodic heart flutter Pharyngitis Recurrent infection of skin Right knee pain Right upper quadrant abdominal pain Vitamin D deficiency Surgical History GERD (gastroesophageal reflux disease) History of bone graft From Hip History of esophagogastroduodenoscopy (EGD) (~02/2020) History of foot surgery Left History of hip surgery error Status post laparoscopic sleeve gastrectomy Family History Other Diabetes Denies family history of Anesthesia complication Bleeding disorder Social History Smoking and tobacco/nicotine status: never used tobacco/nicotine Alcohol intake: never Substance/Drug Use: never Lives independently: Yes Household members: family Marital status: Single Current occupational status: employed Current occupation: Student Physical Exam Const: COMMON NORMALS: no acute distress, patient oriented x3 and healthy appearing HENMT: COMMON NORMALS: normocephalic and atraumatic HEAD & SCALP: normocephalic and atraumatic Eye: COMMON NORMALS: Equal, round and reactive pupils present PUPIL: Yes Equal, round and reactive pupils present Neck/C-Spine: COMMON NORMALS: full ROM and supple Chest: COMMONS NORMALS: normal inspection of the chest and normal palpation of entire chest wall Resp: COMMON NORMALS: normal respiratory effort, No retractions, No use of accessory muscles and clear to auscultation bilaterally AUSCULTATION: clear to auscultation bilaterally Cardio: COMMON NORMALS: regular rate, regular rhythm and No murmurs present (Cardio) RATE: regular rate RHYTHM: regular rhythm GI: COMMON NORMALS: Normal to inspection, nondistended, normoactive bowel sounds present, Soft to palpation, non-tender and no masses PALPATION: Yes Soft to palpation Extremity: COMMON NORMALS: normal to inspection and full ROM Neuro: COMMON NORMALS: patient oriented x3, moves all extremities and no focal motor deficits Psych: COMMON NORMALS: mental status grossly normal, Normal thought process present and cooperative THOUGHT PROCESS: Normal thought process present Skin: COMMON NORMALS: no rashes or lesions noted and no wounds GENERAL SKIN EXAM: no rashes or lesions noted Course Vital Signs: Vital signs: Vital Signs Temperature 98.0 F 08/21/23 23:20 Pulse Rate 81 08/22/23 00:28 Respiratory Rate 19 H 08/22/23 00:28 Blood Pressure 128/82 08/21/23 23:50 Pulse Oximetry 100 08/22/23 00:28 Oxygen Delivery Me thod Room Air 08/22/23 00:28 MDM - URI/Sore Throat Medical Decision Making Patient presents here with likely upper restaurant infection she is well-appearing here no signs of UTI her exam is benign viral panel is pending she is stable for discharge she is to follow-up with PCP and return if worsening Medical Records I reviewed the patient's medical records. Lab Data I reviewed the patient's lab results. Radiology Impressions Chest X-Ray 08/21/23 23:32 IMPRESSION: No acute findings. Laboratory Results Urine Color Yellow (Yellow) 08/22/23 00:00 Urine Appearance Hazy (CLEAR) A 08/22/23 00:00 Urine pH 6 (5-7) 08/22/23 00:00 Ur Specific [place] 1.025 (1.005-1.030) 08/22/23 00:00 Urine Protein Neg (Negative) 08/22/23 00:00 Urine Glucose (UA) Norm (Normal) 08/22/23 00:00 Urine Ketones Negative (Negative) 08/22/23 00:00 Urine Blood Neg (Negative) 08/22/23 00:00 Urine Nitrate Negative (Negative) 08/22/23 00:00 Urine Bilirubin Neg (Negative) 08/22/23 00:00 Urine Urobilinogen 1 mg/dL (Negative) H 08/22/23 00:00 Ur Leukocyte Esterase 1+ (Negative) H 08/22/23 00:00 Urine RBC 0-4 /hpf (0-2) H 08/22/23 00:00 Urine WBC 0-4 /hpf (0-5) H 08/22/23 00:00 Ur Squamous Epith Cells 10-15 /hpf (0-5) H 08/22/23 00:00 Amorphous Sediment Not Reportable 08/22/23 00:00 Urine Bacteria 2+ /hpf (NONE) H 08/22/23 00:00 All radiology interpretation(s) finalized by discharge Discharge Plan Discharge Patient Disposition: Home Clinical Impression: Upper respiratory infection Condition: Stable Prescriptions: No Action nitrofurantoin monohyd/m-cryst [Macrobid] 100 mg capsule 100 mg PO Q12H 5 Days Qty: 10 0RF Rx Instructions: must administer with a meal/food 28-800 mg-mcg Tablet 1 tab PO DAILY Discharge Orders: Discharge ED (Routine); Ordered 08/22/23 Ordered By: Vera Bates Referrals: César Johnson, FAMILY PRESERVATION WORKER [Primary Care Provider] - 1-3 days Discharge Diet: Advance as tolerated Discharge Activity: Resume usual activity Patient Instructions: Upper Respiratory Infection (ED) Coding Level of Care Code ED Director Of Learning for Destiny Kidd
[2023-08-21] MEDS: dexamethasone 10 mg/mL INJ IM (23:41)
[2023-08-21] MEDS: acetaminophen 325 mg Tablet 650 MG PO (23:41)
[2023-08-21 23:50] VITALS: BP 128/82; PULSE 87; RESP 16; O2SAT 98
[2023-08-22 00:27] LABS: Add Urine Microscopic? YES; Bilirubin Urine Neg (Negative); Blood Urine Neg (Negative); Glucose Urine UA Norm (Normal); Ketones Urine Negative (Negative); Leukocyte Esterase Urine 1+ (Negative); Nitrate Urine Negative (Negative); Protein Urine Neg (Negative); Specific Gravity, Urine 1.025 (1.005-1.030); Urine Appearance Hazy (CLEAR); Urine Color Yellow (Yellow); Urobilinogen Urine 1 mg/dL (Negative); pH Urine 6 (5-7)
[2023-08-22 00:28] VITALS: PULSE 81; RESP 19; O2SAT 100
[2023-08-22 00:28] LABS: Add Urine Culture? No; Bacteria Urine 2+ /hpf; RBC Urine 0-4 /hpf (0-2); WBC Urine 0-4 /hpf (0-5)
[2023-08-22 00:50] VITALS: BP 128/82; PULSE 81; RESP 19; O2SAT 100
[2023-08-22 01:18] LABS: Adenovirus Not Detected (NOT DETECT); Chlamydia Pneumoniae Not Detected (NOT DETECT); Coronavirus 229E,HKU1,NL63,OC4 Not Detected (NOT DETECT); Human Metapneumovirus Not Detected (NOT DETECT); Human Rhinovirus/Enterovirus Detected (NOT DETECT); Influenza A Not Detected (NOT DETECT); Influenza A H1 Not Detected (NOT DETECT); Influenza A H1-2009 Not Detected (NOT DETECT); Influenza A H3 Not Detected (NOT DETECT); Influenza B Not Detected (NOT DETECT); Mycoplasma Pneumoniae Not Detected (NOT DETECT); Parainfluenza Virus Type 1 Not Detected (NOT DETECT); Parainfluenza Virus Type 2 Not Detected (NOT DETECT); Parainfluenza Virus Type 3 Not Detected (NOT DETECT); Parainfluenza Virus Type 4 Not Detected (NOT DETECT); Respiratory Syncytial Virus A Not Detected (NOT DETECT); Respiratory Syncytial Virus B Not Detected (NOT DETECT); SARS-COV-2 Not Detected (NOT DETECT)
== END 2023-08-22 00:51 | disposition home or self-care (01) ==
PROVIDERS: Emergency Provider Emergency Medicine; PCP Registered Nurse
DX: O99.512 Diseases of the respiratory system complicating pregnancy, second trimester (principal); J06.9 Acute upper respiratory infection, unspecified; Z3A.22 22 weeks gestation of pregnancy
CPT/HCPCS: 71045; 81001; 87486; 87581; 87633; 96372; 99284; J1100

== ENCOUNTER 2023-11-06 23:55 | Outpatient (CLI) | payer BC, MEDICAID, SELFPAY ==
[2023-11-07] VITALS: RESP 16
[2023-11-07 00:01] VITALS: BMI 35.1
[2023-11-07 00:10] VITALS: BP 133/74; PULSE 104
[2023-11-07 00:29] VITALS: BP 137/75; PULSE 100
[2023-11-07 00:31] LABS: Add Urine Culture? No; Bacteria Urine TRACE /hpf; Bilirubin Urine 1+ (Negative); Blood Urine Neg (Negative); Glucose Urine UA Norm (Normal); Ketones Urine Negative (Negative); Leukocyte Esterase Urine 2+ (Negative); Mucus Urine 1+ /hpf; Nitrate Urine Negative (Negative); Protein Urine Trace (Negative); RBC Urine 0-4 /hpf (0-2); Specific Gravity, Urine 1.025 (1.005-1.030); Squamous Epithelial Cell Urine 15-25 /hpf (0-5); Urine Appearance Clear (CLEAR); Urine Color Dark Yellow (Yellow); Urobilinogen Urine 1 mg/dL (Negative); WBC Urine >100 /hpf (0-5); pH Urine 6 (5-7)
[2023-11-07 00:43] VITALS: BP 135/69; PULSE 100
[2023-11-07 00:51] VITALS: BP 135/69; PULSE 100; RESP 15; TEMP 36.6
== END 2023-11-07 00:55 | disposition home or self-care (01) ==
LOC: OPOB 23:56 → OBGYN 23:57
PROVIDERS: PCP Registered Nurse; Visit Provider Family Medicine
DX: O21.9 Vomiting of pregnancy, unspecified (principal); Z3A.00 Weeks of gestation of pregnancy not specified
CPT/HCPCS: 59025; 81001; 99211

== ENCOUNTER 2024-03-15 09:58 | Emergency (ER) | payer BC, MEDICAID, SELFPAY ==
[2024-03-15 10:11] VITALS: BP 122/53; PULSE 71; RESP 18; TEMP 36.9; O2SAT 98; BMI 33.5
--- NOTE | 2024-03-15 10:38 | W.ED.EAR ---
HPI - Ear Problem General: Chief complaint: Ear Stated complaint: ear pain Time Seen by Provider: 03/15/24 10:16 Source: patient and family Mode of arrival: ambulatory Limitations: no limitations History of Present Illness: Bilateral ear pain going on for 3 days. Has antibiotic drops with steroids has been using. Her PCP cannot visualize her eardrums per the patient. Had her continue the current eardrops she already has. Does report a history of recurrent ear infections. Does not have tubes. Not followed by ENT. PCP notes not available. Review of Systems General: Reports: 10 or more systems reviewed and unremarkable except in HPI and below PFSH ED PFSH: Medical History Pharyngitis Right upper quadrant abdominal pain Recurrent infection of skin Periodic heart flutter Bradycardia Right knee pain History of PCOS Nausea Anxiety and depression Medication management Hypertension screen Medication management Vitamin D deficiency Left hip pain Family planning, Depo-Provera contraception monitoring/administration Anxiety Chronic back pain Morbid obesity Surgical History Status post laparoscopic sleeve gastrectomy History of esophagogastroduodenoscopy (EGD) (~02/2020) GERD (gastroesophageal reflux disease) History of foot surgery Left History of hip surgery error History of bone graft From Hip Family History Other Diabetes Denies family history of Anesthesia complication Bleeding disorder Social History Smoking and tobacco/nicotine status: never used tobacco/nicotine Alcohol intake: never Substance/Drug Use: never Lives independently: Yes Household members: family Marital status: Single Current occupational status: employed Current occupation: Student Physical Exam Const: COMMON NORMALS: no acute distress, average body habitus, patient oriented x3, healthy appearing, alert and well nourished GENERAL APPEARANCE: well kempt and well developed HENMT: COMMON NORMALS: normocephalic, atraumatic, external ears normal and moist oral mucous membranes HEAD & SCALP: normocephalic and atraumatic EXTERNAL EAR: Yes external ears normal EXTERNAL AUDITORY CANAL: Abnormal EAC present (Left and right abnormal, right with mild erythema, left edematous and eryth) TYMPANIC MEMBRANE: TM abnormal TM laterality: bilateral dull and erythematous Eye: COMMON NORMALS: Equal, round and reactive pupils present, EOMs intact bilaterally and conjunctivae normal CONJUNCTIVA: Yes conjunctivae normal PUPIL: Yes Equal, round and reactive pupils present Neck/C-Spine: COMMON NORMALS: full ROM, no lymphadenopathy and supple Chest: CHEST: Yes Symmetrical chest wall rise and No Surgical scars present (Chest) Resp: COMMON NORMALS: normal respiratory effort, No retractions, No use of accessory muscles and clear to auscultation bilaterally AUSCULTATION: clear to auscultation bilaterally Cardio: COMMON NORMALS: regular rate, regular rhythm, S1 normal heart sound present, S2 normal heart sound present, No gallops present (Cardio), No clicks present (Cardio), No murmurs present (Cardio) and No rub (Cardio) RATE: regular rate RHYTHM: regular rhythm HEART SOUNDS: S1 normal heart sound present, S2 normal heart sound present and no murmurs PERIPHERAL PULSES: other (Radial pulses 2+ and symmetric) GI: COMMON NORMALS: Soft to palpation, non-tender and no masses INSPECTION: No abdominal distension PALPATION: Yes Soft to palpation, No Guarding due to palpation present (GI) and No Rebound tenderness present : COMMON NORMALS: Yes no CVA tenderness BLADDER/KIDNEY EXAM: Yes no CVA tenderness Back/Pelvis: COMMON NORMALS: no CVA tenderness Extremity: COMMON NORMALS: normal to inspection, full ROM, capillary refill normal and no clubbing, cyanosis or edema Neuro: COMMON NORMALS: patient oriented x3 SENSORIUM/ORIENTATION: Yes alert Psych: APPEARANCE: Yes well kempt Skin: COMMON NORMALS: no rashes or lesions noted, no wounds, turgor normal and no jaundice GENERAL SKIN EXAM: no rashes or lesions noted and turgor normal Course Reevaluation(s): Reevaluation #1: Patient feels good about plan. Will get medicines administered and have patient discharge. Time: 10:43 Vital Signs: Vital signs: Vital Signs Temperature 98.5 F 03/15/24 10:11 Pulse Rate 71 03/15/24 10:11 Respiratory Rate 18 03/15/24 10:11 Blood Pressure 122/53 03/15/24 10:11 Pulse Oximetry 98 03/15/24 10:11 Oxygen Delivery Me thod Room Air 03/15/24 10:11 [facility] - Ear Medical Decision Making Bilateral otitis externa with otitis media question of rupture. Your canals somewhat swollen so difficult to visualize completely. Will treat pain with Percocet tablet. Treat ear infection here in the ER with Rocephin and Decadron IM. Will give Zofran tablets for nausea prevention. Will discharge with 2 days worth of opiate pain medication then patient can rely on ibuprofen and Tylenol. Will also send Zofran. Will use Cipro p.o. and Ciprodex in case of possible Pseudomonas infection. Differential Diagnosis Likely otitis externa, otitis media, foreign body in ear and ruptured TM Medical Records I reviewed the patient's medical records. No radiology studies performed this visit Discharge Plan Discharge Patient Disposition: Home Clinical Impression: Otitis externa Qualifiers: Otitis externa type: unspecified type Chronicity: acute Laterality: bilateral Qualified Code(s): H60.503 - Unspecified acute noninfective otitis externa, bilateral Otitis media Qualifiers: Otitis media type: suppurative Chronicity: acute Laterality: bilateral Recurrence: recurrent Spontaneous tympanic membrane rupture: with spontaneous rupture Qualified Code(s): H66.016 - Acute suppurative otitis media with spontaneous rupture of ear drum, recurrent, bilateral Condition: Stable Prescriptions: New ciprofloxacin-dexamethasone 0.3-0.1 % drops,suspension 4 drp otic (ear) BID 7 Days Qty: 7.5 0RF ciprofloxacin HCl 500 mg tablet 500 mg PO BID 7 Days Qty: 14 0RF Percocet 5-325 mg tablet 1 tab PO Q8H PRN (Reason: pain, severe) 2 Days Qty: 6 0RF ondansetron 8 mg tablet,disintegrating 8 mg PO Q8H PRN (Reason: nausea and vomiting) 7 Days Qty: 21 0RF Rx Instructions: Take with/before percocet if needed to prevent nausea. No Action nitrofurantoin monohyd/m-cryst [Macrobid] 100 mg capsule 100 mg PO Q12H 5 Days Qty: 10 0RF Rx Instructions: must administer with a meal/food 28-800 mg-mcg Tablet 1 tab PO DAILY Discharge Orders: Discharge ED (Routine); Ordered 03/15/24 Ordered By: Jose Lofton Referrals: César Johnson, QA SOFTWARE TEST ENGINEER [Primary Care Provider] - Discharge Diet: Usual diet Discharge Activity: Resume usual activity Patient Instructions: Opioid Safety, Otitis Externa - Adult Activity Restrictions/Additional Instructions: Ciprofloxacin as part of a class of medicines that can temporarily cause weakness to your tendons. While on antibiotic you should do no heavy lifting or strenuous activity including up to 48 hours after finishing it. No heavy weights, sprinting, athletic activity. Coding Level of Care Code ED Decoration Checker for Destiny Kidd
[2024-03-15] MEDS: ondansetron 4 MG Tablet 8 MG PO (11:09)
[2024-03-15] MEDS: oxyCODONE-APAP 10-325 mg Tablet 1 TAB PO (11:10)
[2024-03-15] MEDS: cefTRIAXone 1,000 MG in water for injection-sterile 2.1 ML 0.100000000000000006 MG IM (11:14)
[2024-03-15] MEDS: dexamethasone 10 mg/mL INJ 6 MG IM (11:15)
[2024-03-15 11:47] VITALS: BP 115/67; PULSE 70; RESP 14; O2SAT 98
== END 2024-03-15 11:48 | disposition home or self-care (01) ==
PROVIDERS: Emergency Provider Emergency Medicine; PCP Registered Nurse
DX: H60.503 Unspecified acute noninfective otitis externa, bilateral (principal); H66.016 Acute suppurative otitis media with spontaneous rupture of ear drum, recurrent, bilateral
CPT/HCPCS: 96372; 99284; J0696; J1100; Q0162

== ENCOUNTER 2024-03-19 23:31 | Emergency (ER) | payer BC, MEDICAID, SELFPAY ==
[2024-03-19 23:32] VITALS: BP 106/64; PULSE 61; RESP 16; TEMP 36.5; O2SAT 98
--- NOTE | 2024-03-19 23:45 | W.ED.EAR ---
HPI - Ear Problem General: Chief complaint: Ear Stated complaint: ear pain Time Seen by Provider: 03/19/24 23:38 History of Present Illness: 23-year-old female who presents to the emergency room with continued ear pain. She is been having bilateral ear pain but worse on the left. She been treated with Cipro and Ciprodex drops. She said the drops that helped quite a bit but the antibiotics do not seem to be helping she is continue to have pain. No hearing loss. No tinnitus. No fevers. Review of Systems Narrative: Constitutional symptoms: Negative except as documented in HPI. Skin symptoms: Negative except as documented in HPI. Eye symptoms: Negative except as documented in HPI. ENMT symptoms: Negative except as documented in HPI. Respiratory symptoms: Negative except as documented in HPI. Cardiovascular symptoms: Negative except as documented in HPI. Gastrointestinal symptoms: Negative except as documented in HPI. Genitourinary symptoms: Negative except as documented in HPI. Musculoskeletal symptoms: Negative except as documented in HPI. Neurologic symptoms: Negative except as documented in HPI. Psychiatric symptoms: Negative except as documented in HPI. Endocrine symptoms: Negative except as documented in HPI. PFSH ED PFSH: Medical History Pharyngitis Right upper quadrant abdominal pain Recurrent infection of skin Periodic heart flutter Bradycardia Right knee pain History of PCOS Nausea Anxiety and depression Medication management Hypertension screen Medication management Vitamin D deficiency Left hip pain Family planning, Depo-Provera contraception monitoring/administration Anxiety Chronic back pain Morbid obesity Surgical History Status post laparoscopic sleeve gastrectomy History of esophagogastroduodenoscopy (EGD) (~02/2020) GERD (gastroesophageal reflux disease) History of foot surgery Left History of hip surgery error History of bone graft From Hip Family History Other Diabetes Denies family history of Anesthesia complication Bleeding disorder Social History Smoking and tobacco/nicotine status: never used tobacco/nicotine Alcohol intake: never Substance/Drug Use: never Lives independently: Yes Household members: family Marital status: Single Current occupational status: employed Current occupation: Student Physical Exam Narrative: EXAM NARRATIVE: General: Alert, no acute distress. Skin: warm and dry Head: Normocephalic Neck: Trachea midline Eye: Extraocular movements are intact. Left TM is bulging. Mildly erythematous. I do not see any pus. She has some canal erythema as well. Ears, nose, mouth and throat: Oral mucosa moist Respiratory: Respirations are non-labored Musculoskeletal: Normal ROM Neurological: Alert and oriented, No focal neurological deficit observed. Psychiatric: Cooperative, appropriate mood & affect. Course Vital Signs: Vital signs: Vital Signs Temperature 97.7 F 03/19/24 23:32 Pulse Rate 61 03/19/24 23:32 Respiratory Rate 16 03/19/24 23:32 Blood Pressure 106/64 03/19/24 23:32 Pulse Oximetry 98 03/19/24 23:32 Oxygen Delivery Me thod Room Air 03/19/24 23:32 [facility] - Ear Medical Decision Making Assessment and plan: Otitis media ? IM Decadron and IM Rocephin in the emergency room. I am to change her antibiotics as she seems to be failing Cipro therapy. She is requesting more eardrops she said that helped a lot. - Discharged home - Discussed plan with patient. Answered any questions. - Evaluation and treatment of this problem were appropriate in the emergency setting. No radiology studies performed this visit Discharge Plan Discharge Patient Disposition: Home Clinical Impression: Otitis media, left Qualifiers: Otitis media type: unspecified Qualified Code(s): H66.92 - Otitis media, unspecified, left ear Condition: Stable Prescriptions: New prednisone 20 mg tablet 60 mg PO DAILY Qty: 20 0RF Rx Instructions: 3 tabs (60 mg) x 3 days. 2 tabs (40 mg) x 3 days. 1 tab (20 mg) x 3 days. 1/2 tab (10 mg) x 4 days cefdinir 300 mg capsule 300 mg PO BID 7 Days Qty: 14 0RF ciprofloxacin-dexamethasone 0.3-0.1 % drops,suspension 4 drp otic (ear) BID 7 Days Qty: 7.5 0RF No Action nitrofurantoin monohyd/m-cryst [Macrobid] 100 mg capsule 100 mg PO Q12H 5 Days Qty: 10 0RF Rx Instructions: must administer with a meal/food 28-800 mg-mcg Tablet 1 tab PO DAILY ciprofloxacin-dexamethasone 0.3-0.1 % drops,suspension 4 drp otic (ear) BID 7 Days Qty: 7.5 0RF ciprofloxacin HCl 500 mg tablet 500 mg PO BID 7 Days Qty: 14 0RF ondansetron 8 mg tablet,disintegrating 8 mg PO Q8H PRN (Reason: nausea and vomiting) 7 Days Qty: 21 0RF Rx Instructions: Take with/before percocet if needed to prevent nausea. Discharge Orders: Discharge ED (Routine); Ordered 03/19/24 Ordered By: Diana Chavez Referrals: César Johnson FNP [Primary Care Provider] - 4-7 days Discharge Diet: Usual diet Discharge Activity: Increase activity as tolerated Patient Instructions: Ear Infection (ED) Activity Restrictions/Additional Instructions: Thank you for choosing [facility] for your healthcare needs today. Please realize this is an emergency room and that we are providing you with a medical screening exam and this may not be complete and all inclusive of all the testing and or work up that you may need to determine your ailment or severity of your illness. You have been screened and evaluated and felt safe for discharge. Health conditions do change or evolve sometimes and as such it is important that you follow up with your Primary Doctor to be re checked, 3-5 days is a general good time frame for follow up. You are always welcome to return to the ED for re assessment if your symptoms are worsening or you have new concerns Coding Level of Care Code ED Turntable Engineer for Destiny Kidd
== END 2024-03-20 00:10 | disposition home or self-care (01) ==
PROVIDERS: Emergency Provider Emergency Medicine; PCP Registered Nurse
DX: H66.92 Otitis media, unspecified, left ear (principal)
CPT/HCPCS: 99284

== ENCOUNTER 2025-01-13 23:04 | Emergency (ER) | payer BC, MEDICAID, SELFPAY ==
[2025-01-13 23:21] VITALS: BP 105/63; PULSE 62; RESP 19; TEMP 36.2; O2SAT 99; BMI 29.2
[2025-01-13 23:23] VITALS: BP 105/63; PULSE 62; RESP 19; O2SAT 99
--- NOTE | 2025-01-13 23:34 | ED_ITS ---
HPI - Ear Problem General: Chief complaint: Ear Stated complaint: Lf Ear Infection Time Seen by Provider: 01/13/25 23:32 History of Present Illness: 24-year-old who presents emergency room with left ear pain that started few hours ago. Is very severe. She has had no fevers. No cough. No congestion. She does have a history of otitis media in the past. Related Data Home Medications ?Medication ?Instructions ?Recorded ?Confirmed vit no.133-ferrous 1 tab PO DAILY 07/05/22 fumarate 28 mg-folic acid 800 mcg tablet () Previous Rx's ?Medication ?Instructions ?Recorded nitrofurantoin 100 mg PO Q12H 5 days #10 ca ps 08/18/23 monohydrate/macrocrystals 100 mg capsule (Macrobid) prednisone 20 mg tablet 60 mg (3 x 20 mg) PO DAILY # 20 tabs 03/19/24 amoxicillin 875 mg-potassium 1 tab PO BID 7 days #14 t abs 01/13/25 clavulanate 125 mg tablet diclofenac sodium 50 mg 50 mg PO BID PRN pain #14 ta bs 01/13/25 tablet,delayed release Allergies Allergy/AdvReac Type Severity Reaction Status Date / Time No Known Allergies Allergy Verified 01/13/25 23:23 Review of Systems Narrative: Constitutional symptoms: Negative except as documented in HPI. Skin symptoms: Negative except as documented in HPI. Eye symptoms: Negative except as documented in HPI. ENMT symptoms: Negative except as documented in HPI. Respiratory symptoms: Negative except as documented in HPI. Cardiovascular symptoms: Negative except as documented in HPI. Gastrointestinal symptoms: Negative except as documented in HPI. Genitourinary symptoms: Negative except as documented in HPI. Musculoskeletal symptoms: Negative except as documented in HPI. Neurologic symptoms: Negative except as documented in HPI. Psychiatric symptoms: Negative except as documented in HPI. Endocrine symptoms: Negative except as documented in HPI. PFS ED PFSH: Medical History Pharyngitis Right upper quadrant abdominal pain Recurrent infection of skin Periodic heart flutter Bradycardia Right knee pain History of PCOS Nausea Anxiety and depression Medication management Hypertension screen Medication management Vitamin D deficiency Left hip pain Family planning, Depo-Provera contraception monitoring/administration Anxiety Chronic back pain Morbid obesity Surgical History Status post laparoscopic sleeve gastrectomy History of esophagogastroduodenoscopy (EGD) (~02/2020) GERD (gastroesophageal reflux disease) History of foot surgery Left History of hip surgery error History of bone graft From Hip Family History Other Diabetes Denies family history of Anesthesia complication Bleeding disorder Social History Smoking and tobacco/nicotine status: never used tobacco/nicotine Alcohol intake: never Substance/Drug Use: never Lives independently: Yes Household members: family Marital status: Single Current occupational status: employed Current occupation: Student Physical Exam Narrative: EXAM NARRATIVE: General: Alert, no acute distress. Skin: warm and dry Head: Normocephalic Neck: Trachea midline Eye: Extraocular movements are intact. Ears, nose, mouth and throat: Oral mucosa moist. Left tympanic membrane is erythematous and bulging with some pus behind the drum. Respiratory: Respirations are non-labored Musculoskeletal: Normal ROM Neurological: Alert and oriented, No focal neurological deficit observed. Psychiatric: Cooperative, appropriate mood & affect. Course Vital Signs: Vital signs: Vital Signs Temperature 97.2 F L 01/13/25 23:21 Pulse Rate 62 01/13/25 23:23 Respiratory Rate 19 H 01/13/25 23:23 Blood Pressure 105/63 01/13/25 23:23 Pulse Oximetry 99 01/13/25 23:23 Oxygen Delivery Me thod Room Air 01/13/25 23:21 [facility] - Ear Medical Decision Making Assessment and plan: Otitis media ? IM Rocephin, IM Toradol, and p.o. [place]. - Discharged home - Discussed plan with patient. Answered any questions. - Evaluation and treatment of this problem were appropriate in the emergency setting. No radiology studies performed this visit Discharge Plan Discharge Patient Disposition: Home Clinical Impression: Otitis media Condition: Stable Prescriptions: New diclofenac sodium 50 mg tablet,delayed release (DR/EC) 50 mg PO BID PRN (Reason: pain) Qty: 14 0RF amoxicillin-pot clavulanate 875-125 mg tablet 1 tab PO BID 7 Days Qty: 14 0RF No Action nitrofurantoin monohyd/m-cryst [Macrobid] 100 mg capsule 100 mg PO Q12H 5 Days Qty: 10 0RF Rx Instructions: must administer with a meal/food 28-800 mg-mcg Tablet 1 tab PO DAILY prednisone 20 mg tablet 60 mg PO DAILY Qty: 20 0RF Rx Instructions: 3 tabs (60 mg) x 3 days. 2 tabs (40 mg) x 3 days. 1 tab (20 mg) x 3 days. 1/2 tab (10 mg) x 4 days Discharge Orders: Discharge ED (Routine); Ordered 01/13/25 Ordered By: Diana Chavez Referrals: César Johnson, NATHAN [Primary Care Provider] - Discharge Diet: Usual diet Discharge Activity: Increase activity as tolerated Patient Instructions: Ear Infection (ED), Opioid Safety, Pain Management Activity Restrictions/Additional Instructions: Thank you for choosing [facility] for your healthcare needs today. Please realize this is an emergency room and that we are providing you with a medical screening exam and this may not be complete and all inclusive of all the testing and or work up that you may need to determine your ailment or severity of your illness. You have been screened and evaluated and felt safe for discharge. Health conditions do change or evolve sometimes and as such it is important that you follow up with your Primary Doctor to be re checked, 3-5 days is a general good time frame for follow up. You are always welcome to return to the ED for re assessment if your symptoms are worsening or you have new concerns Print Language: Emirati Coding Level of Care Code ED Director Of Cardiac Rehabilitation for Destiny Kidd
[2025-01-14] MEDS: cefTRIAXone 1,000 MG in water for injection-sterile 2.1 ML 1 MG IM (00:01)
[2025-01-14] MEDS: ketorolac 60 mg/2 mL INJ IM (00:01)
[2025-01-14] MEDS: ondansetron hcl ODT 4 mg Tab 8 MG PO (00:21)
[2025-01-14] MEDS: HYDROcodone-acetaminophen 10-325 mg Tablet 1 TAB PO (00:24)
[2025-01-14 00:31] VITALS: BP 117/69; PULSE 99; O2SAT 99
== END 2025-01-14 00:32 | disposition home or self-care (01) ==
PROVIDERS: Emergency Provider Emergency Medicine; PCP Registered Nurse
DX: H66.92 Otitis media, unspecified, left ear (principal)
CPT/HCPCS: 96372; 99284; J0696; J1885; J9999; Q0162